=== PATIENT | female | born 1975 | race Caucasian/White ===

== ENCOUNTER 2016-03-24 04:38 | Emergency (ER) | payer OTHER ==
[~2016-03-24 04:38] MED LIST: MAALSUS8 PO; MOTR200T44 PO; NORCOTAB PO
[2016-03-24] MEDS ORDERED: ASPIRIN 81 MG CHEW TABLET As Ordered ONE (05:21)
[2016-03-24 05:25] LABS: BASO % 0.4 % (0.0-1.0); EOS # 0.2 K/mm3 (0.0-0.50); EOS % 1.5 % (0.0-3.0); LARGE UNSTAINED CELL # 0.2 K/mm3 (0.0-0.4); LYMPH # 2.6 K/mm3 (1.5-4.5); LYMPH % 26.5 % (24.0-44.0); MEAN CORPUSCULAR HEMOGLOBIN 31.6 pg (27.0-33.0); MEAN CORPUSCULAR HGB CONC 33.9 g/dl (32.0-36.5); MEAN CORPUSCULAR VOLUME 93.3 fl (80.0-96.0); MONO # 0.4 K/mm3 (0.0-0.8); MONO % 3.6 % (0.0-5.0); NEUTROPHILS # 6.5 K/mm3 (1.8-7.7); NEUTROPHILS % 66.1 % (36.0-66.0); PLATELET COUNT, AUTOMATED 218 k/mm3 (150-450); RED CELL DISTRIBUTION WIDTH 12.1 % (11.5-14.5); WHITE BLOOD COUNT 9.8 K/mm3 (4.0-10.0)
[2016-03-24 05:48] LABS: ANION GAP 8 MEQ/L (8-16); BLOOD UREA NITROGEN 17 MG/DL (7-18); CALCIUM LEVEL 8.7 MG/DL (8.5-10.1); CARBON DIOXIDE LEVEL 25 MEQ/L (21-32); CHLORIDE LEVEL 107 MEQ/L (98-107); CREATININE FOR GFR 0.87 MG/DL (0.55-1.02); GLOMERULAR FILTRATION RATE > 60.0 (>58); GLUCOSE, FASTING 90 MG/DL (70-105); POTASSIUM SERUM 3.6 MEQ/L (3.5-5.1); SODIUM LEVEL 140 MEQ/L (136-145)
--- NOTE | 2016-03-24 06:02 | REP ---
Clinical: Acute chest pain . Comparison: 04/07/2015 . Technique: PA and lateral. Findings: The mediastinum and cardiac silhouette are normal. The lung gifford are clear and without acute consolidation, effusion, or pneumothorax. The skeletal structures are intact and normal. Impression: 1. No acute cardiopulmonary process. Signed by Mike Caldwell MD 03/24/2016 05:53 A
--- NOTE | 2016-03-24 12:11 | EDDOCDS ---
Nurse's Notes [facility] Name: Tori Cummings Age: 40 yrs Sex: Female : 1975 Arrival Date: 03/24/2016 Time: 04:38 Bed 8 Private MD: Diagnosis: Other chest pain Presentation: 03/24 04:43 Presenting complaint: Patient states: chest pain radiating to left arm and left side of cf2 neck with sweat for the past hour. Sudden onset. Aspirin was not taken prior to arrival. Adult Sepsis Screening: The patient does not have new or worsening altered mentation. Patient's respiratory rate is less than 22. Systolic blood pressure is greater than 100. Patient has a qSOFA score of 0- Negative Sepsis Screen. Suicide/Homicide risk assessment- the patient denies having any suicidal and/or homicidal ideations and does not present with any other emotional, behavioral or mental health complaints. Status: Patient is not a reactor service operator or dependent. Transition of care: patient was not received from another setting of care. 04:43 Acuity: ELHAM Level 2 cf2 04:43 Method Of Arrival: Walkin/Carried/Asstd cf2 Triage Assessment: 04:45 General: Appears distressed, Behavior is appropriate for age, cooperative. Pain: cf2 Location: chest. Pt Declines HIV testing. Cardiovascular: Chest pain is described as diffuse, radiates to left arm(s) jaw(s) neck episodes are continuous last > 5 minutes began 1 hour prior to arrival. 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 none - PMHx: Eagle's Disease; hysterectomy; gastric sleeve; - Social history: Smoking status: Patient uses tobacco products, current every day smoker. Race: White, Ethnicity: Not or No barriers to communication noted. - Family history: Not pertinent. - : The pt / caregiver states he / she is not on anticoagulants. Home medication list is obtained from the patient. - Exposure Risk Screening:: None identified. Screenin:55 Screening information is obtained from the patient. Fall risk: No risks identified. tm5 Assistance ADL's: requires no assistance with activities of daily living. Abuse/DV Screen: The patient / caregiver reports he/she is: not in a situation that causes fear, pain or injury. Nutritional screening: No deficits noted. Advance Directives: There is no active DNR order. home support is adequate. Assessment: 04:58 General: Appears in no apparent distress, Behavior is appropriate for age, cooperative. tm5 General: noted to have facial grimacing with repositioning & pt noted to be holding the left side of her chest with this as well, denies SOB. Pain: Location: anterior aspect of left upper chest Pain currently is 5 out of 10 on a pain scale. Quality of pain is described as heavy, pressure, Pain began 1 hour ago. Neurological: Level of Consciousness is awake, alert, Oriented to person, place, time. Cardiovascular: Rhythm is regular. Respiratory: Airway is patent Respiratory effort is even, unlabored, Respiratory pattern is regular, symmetrical, Breath sounds are clear bilaterally. GI: No deficits noted. : No deficits noted. Derm: Skin is pink, warm & dry. normal. 06:08 Reassessment: Patient appears in no apparent distress at this time. Patient states tm5 symptoms have improved. Cardiovascular: Rhythm is regular. 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 Denies chest pain at this time. Respirations easy - slight cough noted. Saline lock intact. 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 Hob slightly elevated. Siderails up and call light on rail. Patient aware she will have repeat testing at 1000.. 07:52 Reassessment: Patient states her BP normally runs very low and has since she stopped kcs using salt.. 08:55 Reassessment: Patient sleeping - has not touched her breakfast. 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 kcs Respirations easy. Color = pink.. 09:56 Reassessment: Patient denies any chest pain at this time - has been resting. Has not kcs eaten breakfast yet. 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 Respirations easy. Color = pink. Skin = warm and dry.. 10:10 Reassessment: Patient talking on cell phone - does not want to eat at this time.. kcs 11:51 General: Appears in no apparent distress, comfortable, Behavior is appropriate for age, ms18 cooperative, Pt was informed that the ED doctor wanted her to ambulate at this time. PT states that she went to the restroom a few mins ago and just wants to go home. Dr. Hilario informed of this. Will ready pt for discharge. Neurological: Level of Consciousness is awake, alert, obeys commands, Oriented to person, place, time. Respiratory: Airway is patent Respiratory effort is even, unlabored. Derm: Skin is pink, warm & dry. 12:06 General: Appears in no apparent distress, comfortable, Behavior is appropriate for age, ms18 cooperative. Pain: Denies pain. Neurological: Level of Consciousness is awake, alert, obeys commands, Oriented to person, place, time, Moves all extremities. Speech is normal. Cardiovascular: Rhythm is regular. Respiratory: Airway is patent Respiratory effort is even, unlabored, Respiratory pattern is regular, symmetrical. Derm: Skin is pink, warm & dry. normal. Vital Signs: 04:45 BP 134 / 68; Pulse 80; Resp 18; Temp 98.0; Pulse Ox 96% on R/A; Weight 81.65 kg; Height cf2 5 ft. 7 in. (170.18 cm); Pain /; 04:53 BP 114 / 69 (auto/); tm5 04:55 Pulse 72 MON; Resp 18; Pulse Ox 98% on 2 lpm NC; Pain /10; tm5 05:08 BP 101 / 58 (auto/); tm5 05:08 Pulse 70 MON; Pulse Ox 95% ; tm5 05:23 BP 104 / 63 (auto/); tm5 05:23 Pulse 64 MON; Pulse Ox 95% ; tm5 05:38 BP 99 / 56 (auto/); tm5 05:38 Pulse 62 MON; Pulse Ox 96% ; tm5 05:53 BP 102 / 56 (auto/); tm5 05:53 Pulse 60 MON; Resp 20 S; Pulse Ox 97% on 2 lpm NC; tm5 06:08 BP 104 / 59 (auto/); tm5 06:08 Pulse 64 MON; Pulse Ox 99% ; tm5 06:23 BP 96 / 52 (auto/); tm5 06:23 Pulse 56 MON; Resp 18 S; Pulse Ox 95% on R/A; tm5 07:08 BP 83 / 46 (auto/); kcs 07:08 Pulse 58 MON; Pulse Ox 96% ; kcs 07:23 BP 84 / 48 (auto/); kcs 07:23 Pulse 56 MON; Pulse Ox 97% ; kcs 07:37 BP 149 / 68 (auto/); kcs 07:37 Pulse 90 MON; Pulse Ox 97% ; kcs 07:37 BP 90 / 53; Pulse 65; Resp 20; Pulse Ox 96% on R/A; Pain 0/10; kcs 07:38 BP 87 / 52 (auto/); kcs 07:38 Pulse 62 MON; Resp 20; Pulse Ox 98% ; kcs 07:49 BP 90 / 53 (auto/); kcs 07:49 Pulse 72 MON; Pulse Ox 97% ; kcs 08:08 BP 85 / 46 (auto/); kcs 08:08 Pulse 56 MON; Pulse Ox 97% ; kcs 08:23 BP 81 / 46 (auto/); kcs 08:23 BP 81 / 46 (auto/); kcs 08:24 Pulse 56 MON; Pulse Ox 96% ; kcs 08:24 Pulse 56 MON; Pulse Ox 96% ; kcs 08:24 BP 86 / 51; Pulse 61; Resp 16; Pulse Ox 96% on R/A; Pain 0/10; kcs 08:38 BP 91 / 53 (auto/); kcs 08:38 Pulse 62 MON; Pulse Ox 94% ; kcs 08:53 BP 93 / 53 (auto/); kcs 08:53 Pulse 60 MON; Pulse Ox 94% ; kcs 09:08 BP 86 / 51 (auto/); kcs 09:08 Pulse 64 MON; Pulse Ox 97% ; kcs 09:23 BP 79 / 44 (auto/); kcs 09:23 Pulse 58 MON; Pulse Ox 96% ; kcs 09:38 BP 101 / 52 (auto/); kcs 09:38 Pulse 58 MON; Resp 18; Pulse Ox 96% ; kcs 09:55 BP 95 / 52 (auto/); kcs 09:55 Pulse 68 MON; Pulse Ox 95% ; kcs 10:08 BP 96 / 53 (auto/); kcs 10:09 Pulse 62 MON; Resp 18; Pulse Ox 95% ; kcs 10:10 Temp 99.2(TE); kcs 10:23 BP 82 / 47 (auto/); kcs 10:24 Pulse 62 MON; Pulse Ox 98% ; kcs 10:38 BP 81 / 45 (auto/); kcs 10:39 Pulse 60 MON; Pulse Ox 97% ; kcs 10:53 BP 83 / 46 (auto/); ms18 10:53 Pulse 58 MON; Pulse Ox 97% ; ms18 11:23 BP 96 / 50 (auto/); ms18 11:23 Pulse 60 MON; Pulse Ox 96% ; ms18 11:38 BP 84 / 49 (auto/); ms18 11:38 Pulse 60 MON; Resp 18; Pulse Ox 96% ; ms18 12:00 BP 93 / 57 (auto/); ms18 12:00 Pulse 66 MON; Resp 18; Pulse Ox 97% ; Pain 0/10; ms18 04:45 Body Mass Index 28.19 (81.65 kg, 170.18 cm) cf2 Vitals: 12:04 Log In Time: March 24, 2016 at 04:40. ms18 ED Course: 04:40 Patient visited by Jacob Wong, Reg. pm4 04:40 Patient moved to Waiting pm4 04:44 Triage Initiated cf2 04:48 Patient moved to 8 tm5 04:50 Hebert Lim DO is Attending Physician. mm11 04:50 Patient visited by Hebert Lim DO. mm11 04:55 Awaiting ED physician evaluation. tm5 04:55 The patient / caregiver is instructed regarding the plan of care and ED course. Cardiac tm5 monitor on. Pulse ox on. NIBP on. 04:57 Patient visited by Onelia Bill RN. tm5 04:57 Inserted saline lock: 18 gauge in left forearm and blood collected. The patient tm5 tolerated the procedure well. Labs drawn. (by ED staff). Sent per order to lab. O2 via nasal cannula \T\ 2L/min. 05:04 Patient visited by Edgar Lou PCA. jmv 05:04 EKG done. (by ED staff). Reviewed by Hebert Lim DO. jmv 05:11 Patient visited by Onelia Bill RN. tm5 05:11 ED physician to see patient. tm5 05:18 Patient visited by Hebert Lim DO. mm11 05:19 Patient visited by Oenlia Bill RN. tm5 05:19 Basic Metabolic Profile Sent. tm5 05:19 CBC with Diff Sent. tm5 05:19 Cardiac Injury Profile Sent. tm5 05:19 D-Dimer Quant Sent. tm5 05:19 Troponin Sent. tm5 05:43 Patient visited by Onelia Bill RN. tm5 05:43 Patient moved back from radiology. tm5 05:49 [facility] Payment Agreement was scanned into [employer] and attached to record. hs2 06:08 Patient visited by Onelia Bill RN. tm5 06:14 Chest, 2 View (pa\E\lat) Returned. EDMS 06:32 Patient visited by Onelia Bill RN. tm5 06:54 Patient visited by Onelia Bill RN. tm5 07:02 Report received from Onelia Bill RN. kcs 07:06 Attending Physician role handed off by Hebert Lim DO sd1 07:06 Flor Sparks MD is Attending Physician. sd1 07:56 Patient moved to OBSERVATION sd1 09:56 CARDIAC MARKER PANEL Sent. kcs 09:57 Patient visited by Tram Garcia RN. kcs 09:57 Patient visited by Cm Villegas PCA. jrd 09:57 EKG done. (by ED staff). Reviewed by Flor Sparks MD. jrd 11:06 Report given to Leigha Toledo RN. kcs 11:17 Leigha Toledo RN is Primary Nurse. ms18 11:38 Patient has correct armband on for positive identification. Placed in gown. Bed in low ms18 position. Call light in reach. Property :Personal belongings accompany Pt. 11:38 No procedures done that require assistance. ms18 11:50 Patient visited by Leigha Toledo RN. ms18 11:50 Patient moved to 8 ms18 11:54 Isidro Montoya MD is Referral Physician. sd1 12:00 Discontinued IV lock intact, bleeding controlled, pressure dressing applied, No ms18 redness/swelling at site. 12:03 Patient visited by Leigha Toledo RN. ms18 Administered Medications: 05:26 Drug: Aspirin 324 mg [aspirin 81 mg chewable tablet (4 tabs)] Route: PO; tm5 06:00 Follow up: Response: No Adverse Reaction tm5 05:26 Drug: NS 0.9% 500 ml [sodium chloride 0.9 % intravenous solution] Route: IV; Rate: tm5 bolus; Site: left forearm; 06:33 Follow up: IV Status: Completed infusion; IV Intake: 500ml tm5 08:10 Follow up: IV Status: Completed infusion; IV Intake: 500ml kcs Intake: 06:33 IV: 500.00ml; Total: 500.00ml. tm5 08:10 IV: 500.00ml; Total: 1000.00ml. kcs Order Results: Lab Order: Basic Metabolic Profile; SPEC03/24/16 05:02 Test: GLUCOSE, FASTING; Value: 90; Range: 70-105; Units: MG/DL; Status: F Test: BLOOD UREA NITROGEN; Value: 17; Range: 7-18; Units: MG/DL; Status: F Test: CREATININE FOR GFR; Value: 0.87; Range: 0.55-1.02; Units: MG/DL; Status: F Test: GLOMERULAR FILTRATION RATE; Value: > 60.0; Range: >58; Status: F Test: SODIUM LEVEL; Value: 140; Range: 136-145; Units: MEQ/L; Status: F Test: POTASSIUM SERUM; Value: 3.6; Range: 3.5-5.1; Units: MEQ/L; Status: F Test: CHLORIDE LEVEL; Value: 107; Range: 98-107; Units: MEQ/L; Status: F Test: CARBON DIOXIDE LEVEL; Value: 25; Range: 21-32; Units: MEQ/L; Status: F Test: ANION GAP; Value: 8; Range: 8-16; Units: MEQ/L; Status: F Test: CALCIUM LEVEL; Value: 8.7; Range: 8.5-10.1; Units: MG/DL; Status: F Test Note: ; Units are mL/min/1.73 m2 Chronic Kidney Disease Staging per NKF: Stage I & II GFR >=60 Normal to Mildly Decreased Stage III GFR 30-59 Moderately Decreased Stage IV GFR 15-29 Severely Decreased Stage V GFR <15 Very Little GFR Left ESRD GFR <15 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 Lab Order: CBC with Diff; SPEC'03/24/16 05:02 Test: WHITE BLOOD COUNT; Value: 9.8; Range: 4.0-10.0; Units: K/mm3; Status: F Test: RED BLOOD COUNT; Value: 4.62; Range: 4.00-5.40; Units: M/mm3; Status: F Test: HEMOGLOBIN; Value: 14.6; Range: 12.0-16.0; Units: g/dl; Status: F Test: HEMATOCRIT; Value: 43.1; Range: 36.0-47.0; Units: %; Status: F Test: MEAN CORPUSCULAR VOLUME; Value: 93.3; Range: 80.0-96.0; Units: fl; Status: F Test: MEAN CORPUSCULAR HEMOGLOBIN; Value: 31.6; Range: 27.0-33.0; Units: pg; Status: F Test: MEAN CORPUSCULAR HGB CONC; Value: 33.9; Range: 32.0-36.5; Units: g/dl; Status: F Test: RED CELL DISTRIBUTION WIDTH; Value: 12.1; Range: 11.5-14.5; Units: %; Status: F Test: PLATELET COUNT, AUTOMATED; Value: 218; Range: 150-450; Units: k/mm3; Status: F Test: NEUTROPHILS %; Value: 66.1; Range: 36.0-66.0; Abnormal: Above high normal; Units: %; Status: F Test: LYMPH %; Value: 26.5; Range: 24.0-44.0; Units: %; Status: F Test: MONO %; Value: 3.6; Range: 0.0-5.0; Units: %; Status: F Test: EOS %; Value: 1.5; Range: 0.0-3.0; Units: %; Status: F Test: BASO %; Value: 0.4; Range: 0.0-1.0; Units: %; Status: F Test: LARGE UNSTAINED CELL %; Value: 2.0; Range: 0.0-4.0; Units: %; Status: F Test: NEUTROPHILS #; Value: 6.5; Range: 1.8-7.7; Units: K/mm3; Status: F Test: LYMPH #; Value: 2.6; Range: 1.5-4.5; Units: K/mm3; Status: F Test: MONO #; Value: 0.4; Range: 0.0-0.8; Units: K/mm3; Status: F Test: EOS #; Value: 0.2; Range: 0.0-0.50; Units: K/mm3; Status: F Test: BASO #; Value: 0.0; Range: 0.0-0.2; Units: K/mm3; Status: F Test: LARGE UNSTAINED CELL #; Value: 0.2; Range: 0.0-0.4; Units: K/mm3; Status: F Lab Order: Cardiac Injury Profile; [facility] 03/24/16 05:02 Test: CPK CREATINE PHOSPHOKINASE; Value: 61; Range: 26-192; Units: U/L; Status: F Test: CK-MB VALUE MASS; Value: 1.0; Range: 0.0-3.6; Units: NG/ML; Status: F Test: MB/CK RELATIVE INDEX; Value: 1.63; Range: < OR =4; Status: F Test Note: ; DIAGNOSIS CRITERIA MMB ng/ml Relative Index (RI) NON-AMI < or = 5 N/A [place]ONE > 5 < or = 4 AMI > 5 > 4 Lab Order: D-Dimer Quant; 03/24/16 05:02 Test: D-DIMER QUANT; Value: < 270.0; Range: <500; Units: ng/ml; Status: F Lab Order: Troponin; [facility] 03/24/16 05:02 Test: TROPONIN I; Value: < 0.02; Range: < 0.10; Units: NG/ML; Status: F Test Note: ; Troponin I Reference Interval for [employer] LOCI: 99th Percentile= 0.00-0.045 ng/ml Risk Stratification: <= 0.10 ng/ml Decreased Risk for Adverse Clinical Events. 0.10-1.50 ng/ml Increased Risk for Adverse Clinical Events. Evaluation of additional criterion and/or repeat testing in 2-6 hours is suggested to rule out myocardial damage. >= 1.50 ng/ml Indicative of Myocardial Injury. Lab Order: CARDIAC MARKER PANEL; [facility] 03/24/16 09:53 Test: CPK CREATINE PHOSPHOKINASE; Value: 48; Range: 26-192; Units: U/L; Status: F Test: CK-MB VALUE MASS; Value: 1.0; Range: 0.0-3.6; Units: NG/ML; Status: F Test: MB/CK RELATIVE INDEX; Value: 2.08; Range: < OR =4; Status: F Test: TROPONIN I; Value: < 0.02; Range: < 0.10; Units: NG/ML; Status: F Test Note: ; DIAGNOSIS CRITERIA MMB ng/ml Relative Index (RI) NON-AMI < or = 5 N/A JOH[place]ON [place]ONE > 5 < or = 4 AMI > 5 > 4 Radiology Order: Chest, 2 View (pa\E\lat) Test: Chest, 2 View (pa\E\lat) REASON FOR EXAMINATION: Chest Pain; Clinical: Acute chest pain .; ; Comparison: 04/07/2015 .; ; Technique: PA and lateral.; ; Findings:; The mediastinum and cardiac silhouette are normal. The lung gifford are clear and; without acute consolidation, effusion, or pneumothorax. The skeletal structures; are intact and normal.; ; Impression:; 1. No acute cardiopulmonary process.; ; ; Signed by; Mike Caldwell MD 03/24/2016 05:53 A; Outcome: 11:54 Discharge ordered by Provider. sd1 12:00 Discharge Assessment: Patient awake, alert and oriented x 3. No cognitive and/or ms18 functional deficits noted. Patient verbalized understanding of disposition instructions. patient administered narcotics - no. 12:09 The following High Risk Discharge criteria are identified: None. Discharged to home ms18 ambulatory. Condition: good Condition: stable Condition: improved. Discharge instructions given to patient, Instructed on discharge instructions, follow up and referral plans. medication usage, Demonstrated understanding of instructions, medications, Pt was receptive of discharge instructions/ teaching. Prescriptions given X 1. No special radiology studies were completed. Property sent home with patient. :Personal belongings accompany Pt. 12:10 Patient left the ED. ms18 Signatures: Dispatcher [employer] EDMS Flor Sparks MD MD sd1 Tram Garcia, SORAIDA RN Hebert Rizo, DO DO mm11 Leigha Toledo RN RN ms18 Cm Villegas, CHEMICAL EQUIPMENT SALES ENGINEER CHEMICAL EQUIPMENT SALES ENGINEER jrd Maryann Hernandez, Reg Reg hs2 Heather Lea,RN RN cf2 Edgar Lou, CHEMICAL EQUIPMENT SALES ENGINEER CHEMICAL EQUIPMENT SALES ENGINEER Onelia Steven RN RN tm5 Jacob Wong, Reg Reg pm4 MTDD
--- NOTE | 2016-03-24 12:11 | EDDOCDS ---
Physician Documentation [facility] Name: Tori Cummings Age: 40 yrs Sex: Female : 1975 Arrival Date: 03/24/2016 Time: 04:38 Bed 8 Private MD: Disposition: 03/24/16 11:54 Discharged to Home/Self Care. Impression: Other chest pain. - Condition is Stable. - Discharge Instructions: Angina Pectoris, Nonspecific Chest Pain, Chest Wall Pain, Costochondritis, Gastroesophageal Reflux Disease, Adult. - Prescriptions for Aspirin 81 mg - take 1 tablet by ORAL route once daily; 90 tablet. - Medication Reconciliation, Local Pharmacy Hours form. - Follow up: Isidro Montoya MD; When: Call to arrange an appointment. - Problem is new. - Symptoms have improved. Historical: - Allergies: no known allergies; - Home Meds: 1. none - PMHx: Eagle's Disease; hysterectomy; gastric sleeve; - Social history: Smoking status: Patient uses tobacco products, current every day smoker. Race: White, Ethnicity: Not or No barriers to communication noted. - Family history: Not pertinent. - : The pt / caregiver states he / she is not on anticoagulants. Home medication list is obtained from the patient. - Exposure Risk Screening:: None identified. 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 7 in. (170.18 cm); Pain 2/10; 04:53 BP 114 / 69 (auto/); tm5 04:55 Pulse 72 MON; Resp 18; Pulse Ox 98% on 2 lpm NC; Pain 5/10; tm5 05:08 BP 101 / 58 (auto/); tm5 05:08 Pulse 70 MON; Pulse Ox 95% ; tm5 05:23 BP 104 / 63 (auto/); tm5 05:23 Pulse 64 MON; Pulse Ox 95% ; tm5 05:38 BP 99 / 56 (auto/); tm5 05:38 Pulse 62 MON; Pulse Ox 96% ; tm5 05:53 BP 102 / 56 (auto/); tm5 05:53 Pulse 60 MON; Resp 20 S; Pulse Ox 97% on 2 lpm NC; tm5 06:08 BP 104 / 59 (auto/); tm5 06:08 Pulse 64 MON; Pulse Ox 99% ; tm5 06:23 BP 96 / 52 (auto/); tm5 06:23 Pulse 56 MON; Resp 18 S; Pulse Ox 95% on R/A; tm5 07:08 BP 83 / 46 (auto/); kcs 07:08 Pulse 58 MON; Pulse Ox 96% ; kcs 07:23 BP 84 / 48 (auto/); kcs 07:23 Pulse 56 MON; Pulse Ox 97% ; kcs 07:37 BP 149 / 68 (auto/); kcs 07:37 Pulse 90 MON; Pulse Ox 97% ; kcs 07:37 BP 90 / 53; Pulse 65; Resp 20; Pulse Ox 96% on R/A; Pain 0/10; kcs 07:38 BP 87 / 52 (auto/); kcs 07:38 Pulse 62 MON; Resp 20; Pulse Ox 98% ; kcs 07:49 BP 90 / 53 (auto/); kcs 07:49 Pulse 72 MON; Pulse Ox 97% ; kcs 08:08 BP 85 / 46 (auto/); kcs 08:08 Pulse 56 MON; Pulse Ox 97% ; kcs 08:23 BP 81 / 46 (auto/); kcs 08:23 BP 81 / 46 (auto/); kcs 08:24 Pulse 56 MON; Pulse Ox 96% ; kcs 08:24 Pulse 56 MON; Pulse Ox 96% ; kcs 08:24 BP 86 / 51; Pulse 61; Resp 16; Pulse Ox 96% on R/A; Pain 0/10; kcs 08:38 BP 91 / 53 (auto/); kcs 08:38 Pulse 62 MON; Pulse Ox 94% ; kcs 08:53 BP 93 / 53 (auto/); kcs 08:53 Pulse 60 MON; Pulse Ox 94% ; kcs 09:08 BP 86 / 51 (auto/); kcs 09:08 Pulse 64 MON; Pulse Ox 97% ; kcs 09:23 BP 79 / 44 (auto/); kcs 09:23 Pulse 58 MON; Pulse Ox 96% ; kcs 09:38 BP 101 / 52 (auto/); kcs 09:38 Pulse 58 MON; Resp 18; Pulse Ox 96% ; kcs 09:55 BP 95 / 52 (auto/); kcs 09:55 Pulse 68 MON; Pulse Ox 95% ; kcs 10:08 BP 96 / 53 (auto/); kcs 10:09 Pulse 62 MON; Resp 18; Pulse Ox 95% ; kcs 10:10 Temp 99.2(TE); kcs 10:23 BP 82 / 47 (auto/); kcs 10:24 Pulse 62 MON; Pulse Ox 98% ; kcs 10:38 BP 81 / 45 (auto/); kcs 10:39 Pulse 60 MON; Pulse Ox 97% ; kcs 10:53 BP 83 / 46 (auto/); ms18 10:53 Pulse 58 MON; Pulse Ox 97% ; ms18 11:23 BP 96 / 50 (auto/); ms18 11:23 Pulse 60 MON; Pulse Ox 96% ; ms18 11:38 BP 84 / 49 (auto/); ms18 11:38 Pulse 60 MON; Resp 18; Pulse Ox 96% ; ms18 12:00 BP 93 / 57 (auto/); ms18 12:00 Pulse 66 MON; Resp 18; Pulse Ox 97% ; Pain 0/10; ms18 04:45 Body Mass Index 28.19 (81.65 kg, 170.18 cm) cf2 MDM: 04:43 ECG WITH READING ER PHYS+CARDIAG ordered. EDMS 05:19 Aspirin Chewable Tablet 324 mg PO once ordered. mm11 05:19 NS 0.9% 500 ml IV at bolus once ordered. mm11 05:19 Material Coordinator/Pulse Ox/q 30 min VS ordered. mm11 05:19 IV Saline Lock ordered. mm11 05:19 Rhythm Strip to chart ordered. mm11 05:19 Undress patient appropriately for examination ordered. mm11 05:19 Basic Metabolic Profile Ordered. EDMS 05:19 CBC with Diff Ordered. EDMS 05:19 Cardiac Injury Profile Ordered. EDMS 05:19 D-Dimer Quant Ordered. EDMS 05:19 Troponin Ordered. EDMS 05:21 Chest, 2 View (pa\E\lat) Ordered. EDMS 05:48 Financial registration complete. hs2 05:49 [facility] was scanned into [employer] and attached to record. hs2 05:51 CBC with Diff Reviewed. mm11 05:51 Basic Metabolic Profile Reviewed. mm11 05:51 Cardiac Injury Profile Reviewed. mm11 05:51 D-Dimer Quant Reviewed. mm11 05:51 Troponin Reviewed. mm11 07:07 Redraw CIP &Troponin (put time in details section) ordered. mm11 07:07 Repeat EKG (put time details section) ordered. mm11 07:15 Redraw CIP &Troponin (put time in details section) complete. deg 07:15 Repeat EKG (put time details section) complete. deg 07:16 ELECTROCARDIOGRAM ADULT ordered. EDMS 07:17 CARDIAC MARKER PANEL Ordered. EDMS 07:40 REGULAR+DIET ordered. EDMS 10:37 CARDIAC MARKER PANEL Reviewed. sd1 10:37 Chest, 2 View (pa\E\lat) Reviewed. sd1 Administered Medications: 05:26 Drug: Aspirin 324 mg [aspirin 81 mg chewable tablet (4 tabs)] Route: PO; tm5 06:00 Follow up: Response: No Adverse Reaction tm5 05:26 Drug: NS 0.9% 500 ml [sodium chloride 0.9 % intravenous solution] Route: IV; Rate: tm5 bolus; Site: left forearm; 06:33 Follow up: IV Status: Completed infusion; IV Intake: 500ml tm5 08:10 Follow up: IV Status: Completed infusion; IV Intake: 500ml kcs Signatures: Dispatcher [employer] EDFlor Rothman MD MD sd1 Sandra Brenner, Founder And Ce[employer] Unit deg Hebert Lim, DO mm11 Leigha Toledo,SORAIDA RN ms18 Maryann Hernandez, Reg Reg hs2 Heather Lea RN RN cf2 Onelia Bill RN RN tm5 Tram Garcia RN kcs The chart was reviewed and I authenticate all verbal orders and agree with the evaluation and treatment provided.Corrections: (The following items were deleted from the chart) 11:51 10:38 Misc. Nursing Order ordered. sd1 ms18 Attachments: 05:49 [facility] Payment Agreement hs2 MTDD
--- NOTE | 2016-03-24 18:37 | ECGEPIP ---
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
--- NOTE | 2016-03-25 09:15 | ECGEPIP ---
Stationary ECG Study [facility] - ED Test Date: 2016-03-24 Pat Name: SADIQ DIEHL Department: Room: - Gender: F Resident Physician In Radiology: annie : 1975 Requested By: MIKE Lowery Order Number: [id number] Reading MD: Flor Sparks Measurements Intervals [place] Rate: 68 P: 13 AK: 142 QRS: 20 QRSD: 94 T: 26 QT: 397 QTc: 422 Interpretive Statements SINUS RHYTHM SIMILAR 03/24/16 9:55 Electronically Signed On 03-25-2016 9:15:16 EST by Flor Sparks
--- NOTE | 2016-03-26 13:11 | EDDOCDS ---
Physician Documentation [facility] Name: Tori Cummings Age: 40 yrs Sex: Female : 1975 Arrival Date: 03/24/2016 Time: 04:38 Bed 8 Private MD: Disposition: 03/24/16 11:54 Discharged to Home/Self Care. Impression: Other chest pain. - Condition is Stable. - Discharge Instructions: Angina Pectoris, Nonspecific Chest Pain, Chest Wall Pain, Costochondritis, Gastroesophageal Reflux Disease, Adult. - Prescriptions for Aspirin 81 mg - take 1 tablet by ORAL route once daily; 90 tablet. - Medication Reconciliation, Local Pharmacy Hours form. - Follow up: Isidro Montoya MD; When: Call to arrange an appointment. - Problem is new. - Symptoms have improved. Historical: - Allergies: no known allergies; - Home Meds: 1. none - PMHx: Eagle's Disease; hysterectomy; gastric sleeve; - Social history: Smoking status: Patient uses tobacco products, current every day smoker. Race: White, Ethnicity: Not or No barriers to communication noted. - Family history: Not pertinent. - : The pt / caregiver states he / she is not on anticoagulants. Home medication list is obtained from the patient. - Exposure Risk Screening:: None identified. 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 7 in. (170.18 cm); Pain 2/10; 04:53 BP 114 / 69 (auto/); tm5 04:55 Pulse 72 MON; Resp 18; Pulse Ox 98% on 2 lpm NC; Pain 5/10; tm5 05:08 BP 101 / 58 (auto/); tm5 05:08 Pulse 70 MON; Pulse Ox 95% ; tm5 05:23 BP 104 / 63 (auto/); tm5 05:23 Pulse 64 MON; Pulse Ox 95% ; tm5 05:38 BP 99 / 56 (auto/); tm5 05:38 Pulse 62 MON; Pulse Ox 96% ; tm5 05:53 BP 102 / 56 (auto/); tm5 05:53 Pulse 60 MON; Resp 20 S; Pulse Ox 97% on 2 lpm NC; tm5 06:08 BP 104 / 59 (auto/); tm5 06:08 Pulse 64 MON; Pulse Ox 99% ; tm5 06:23 BP 96 / 52 (auto/); tm5 06:23 Pulse 56 MON; Resp 18 S; Pulse Ox 95% on R/A; tm5 07:08 BP 83 / 46 (auto/); kcs 07:08 Pulse 58 MON; Pulse Ox 96% ; kcs 07:23 BP 84 / 48 (auto/); kcs 07:23 Pulse 56 MON; Pulse Ox 97% ; kcs 07:37 BP 149 / 68 (auto/); kcs 07:37 Pulse 90 MON; Pulse Ox 97% ; kcs 07:37 BP 90 / 53; Pulse 65; Resp 20; Pulse Ox 96% on R/A; Pain 0/10; kcs 07:38 BP 87 / 52 (auto/); kcs 07:38 Pulse 62 MON; Resp 20; Pulse Ox 98% ; kcs 07:49 BP 90 / 53 (auto/); kcs 07:49 Pulse 72 MON; Pulse Ox 97% ; kcs 08:08 BP 85 / 46 (auto/); kcs 08:08 Pulse 56 MON; Pulse Ox 97% ; kcs 08:23 BP 81 / 46 (auto/); kcs 08:23 BP 81 / 46 (auto/); kcs 08:24 Pulse 56 MON; Pulse Ox 96% ; kcs 08:24 Pulse 56 MON; Pulse Ox 96% ; kcs 08:24 BP 86 / 51; Pulse 61; Resp 16; Pulse Ox 96% on R/A; Pain 0/10; kcs 08:38 BP 91 / 53 (auto/); kcs 08:38 Pulse 62 MON; Pulse Ox 94% ; kcs 08:53 BP 93 / 53 (auto/); kcs 08:53 Pulse 60 MON; Pulse Ox 94% ; kcs 09:08 BP 86 / 51 (auto/); kcs 09:08 Pulse 64 MON; Pulse Ox 97% ; kcs 09:23 BP 79 / 44 (auto/); kcs 09:23 Pulse 58 MON; Pulse Ox 96% ; kcs 09:38 BP 101 / 52 (auto/); kcs 09:38 Pulse 58 MON; Resp 18; Pulse Ox 96% ; kcs 09:55 BP 95 / 52 (auto/); kcs 09:55 Pulse 68 MON; Pulse Ox 95% ; kcs 10:08 BP 96 / 53 (auto/); kcs 10:09 Pulse 62 MON; Resp 18; Pulse Ox 95% ; kcs 10:10 Temp 99.2(TE); kcs 10:23 BP 82 / 47 (auto/); kcs 10:24 Pulse 62 MON; Pulse Ox 98% ; kcs 10:38 BP 81 / 45 (auto/); kcs 10:39 Pulse 60 MON; Pulse Ox 97% ; kcs 10:53 BP 83 / 46 (auto/); ms18 10:53 Pulse 58 MON; Pulse Ox 97% ; ms18 11:23 BP 96 / 50 (auto/); ms18 11:23 Pulse 60 MON; Pulse Ox 96% ; ms18 11:38 BP 84 / 49 (auto/); ms18 11:38 Pulse 60 MON; Resp 18; Pulse Ox 96% ; ms18 12:00 BP 93 / 57 (auto/); ms18 12:00 Pulse 66 MON; Resp 18; Pulse Ox 97% ; Pain 0/10; ms18 04:45 Body Mass Index 28.19 (81.65 kg, 170.18 cm) cf2 MDM: 04:43 ECG WITH READING ER PHYS+CARDIAG ordered. EDMS 05:19 Aspirin Chewable Tablet 324 mg PO once ordered. mm11 05:19 NS 0.9% 500 ml IV at bolus once ordered. mm11 05:19 Fire Behavior Analyst/Pulse Ox/q 30 min VS ordered. mm11 05:19 IV Saline Lock ordered. mm11 05:19 Rhythm Strip to chart ordered. mm11 05:19 Undress patient appropriately for examination ordered. mm11 05:19 Basic Metabolic Profile Ordered. EDMS 05:19 CBC with Diff Ordered. EDMS 05:19 Cardiac Injury Profile Ordered. EDMS 05:19 D-Dimer Quant Ordered. EDMS 05:19 Troponin Ordered. EDMS 05:21 Chest, 2 View (pa\E\lat) Ordered. EDMS 05:48 Financial registration complete. hs2 05:49 [facility] Payment Agreement was scanned into [employer] and attached to record. hs2 05:51 CBC with Diff Reviewed. mm11 05:51 Basic Metabolic Profile Reviewed. mm11 05:51 Cardiac Injury Profile Reviewed. mm11 05:51 D-Dimer Quant Reviewed. mm11 05:51 Troponin Reviewed. mm11 07:07 Redraw CIP &Troponin (put time in details section) ordered. mm11 07:07 Repeat EKG (put time details section) ordered. mm11 07:15 Redraw CIP &Troponin (put time in details section) complete. deg 07:15 Repeat EKG (put time details section) complete. deg 07:16 ELECTROCARDIOGRAM ADULT ordered. EDMS 07:17 CARDIAC MARKER PANEL Ordered. EDMS 07:40 REGULAR+DIET ordered. EDMS 10:37 CARDIAC MARKER PANEL Reviewed. sd1 10:37 Chest, 2 View (pa\E\lat) Reviewed. sd1 15:00 T-Sheet-- Draft Copy was scanned into [employer] and attached to record. gb 15:00 ECG/EKG was scanned into [employer] and attached to record. gb 15:00 Trend VS was scanned into [employer] and attached to record. gb Administered Medications: 05:26 Drug: Aspirin 324 mg [aspirin 81 mg chewable tablet (4 tabs)] Route: PO; tm5 06:00 Follow up: Response: No Adverse Reaction tm5 05:26 Drug: NS 0.9% 500 ml [sodium chloride 0.9 % intravenous solution] Route: IV; Rate: tm5 bolus; Site: left forearm; 06:33 Follow up: IV Status: Completed infusion; IV Intake: 500ml tm5 08:10 Follow up: IV Status: Completed infusion; IV Intake: 500ml [facility] Signatures: Dispatcher [employer] [facility] Flor Sparks MD MD sd1 Sandra Brenner, Hemp Fiber Taker Off Unit deg Alis Boyle, Reg Reg gb Hebert Lim, DO mm11 Leigha Toledo,RN RN ms18 Maryann Hernandez, Reg Reg hs2 Heather LeaRN RN cf2 Onelia BillRN RN tm5 Tram Garcia RN The chart was reviewed and I authenticate all verbal orders and agree with the evaluation and treatment provided.Corrections: (The following items were deleted from the chart) 11:51 10:38 Misc. Nursing Order ordered. sd1 ms18 Attachments: 05:49 [facility] Payment Agreement hs2 15:00 T-Sheet-- Draft Copy gb 15:00 ECG/EKG gb Chart Complete MTDD
--- NOTE | 2016-03-26 13:11 | EDDOCDS ---
Physician Documentation [facility] Name: Tori Cummings Age: 40 yrs Sex: Female : 1975 Arrival Date: 03/24/2016 Time: 04:38 Bed 8 Private MD: Disposition: 03/24/16 11:54 Discharged to Home/Self Care. Impression: Other chest pain. - Condition is Stable. - Discharge Instructions: Angina Pectoris, Nonspecific Chest Pain, Chest Wall Pain, Costochondritis, Gastroesophageal Reflux Disease, Adult. - Prescriptions for Aspirin 81 mg - take 1 tablet by ORAL route once daily; 90 tablet. - Medication Reconciliation, Local Pharmacy Hours form. - Follow up: Isidro Montoya MD; When: Call to arrange an appointment. - Problem is new. - Symptoms have improved. Historical: - Allergies: no known allergies; - Home Meds: 1. none - PMHx: Eagle's Disease; hysterectomy; gastric sleeve; - Social history: Smoking status: Patient uses tobacco products, current every day smoker. Race: White, Ethnicity: Not or No barriers to communication noted. - Family history: Not pertinent. - : The pt / caregiver states he / she is not on anticoagulants. Home medication list is obtained from the patient. - Exposure Risk Screening:: None identified. 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 7 in. (170.18 cm); Pain 2/10; 04:53 BP 114 / 69 (auto/); tm5 04:55 Pulse 72 MON; Resp 18; Pulse Ox 98% on 2 lpm NC; Pain 5/10; tm5 05:08 BP 101 / 58 (auto/); tm5 05:08 Pulse 70 MON; Pulse Ox 95% ; tm5 05:23 BP 104 / 63 (auto/); tm5 05:23 Pulse 64 MON; Pulse Ox 95% ; tm5 05:38 BP 99 / 56 (auto/); tm5 05:38 Pulse 62 MON; Pulse Ox 96% ; tm5 05:53 BP 102 / 56 (auto/); tm5 05:53 Pulse 60 MON; Resp 20 S; Pulse Ox 97% on 2 lpm NC; tm5 06:08 BP 104 / 59 (auto/); tm5 06:08 Pulse 64 MON; Pulse Ox 99% ; tm5 06:23 BP 96 / 52 (auto/); tm5 06:23 Pulse 56 MON; Resp 18 S; Pulse Ox 95% on R/A; tm5 07:08 BP 83 / 46 (auto/); kcs 07:08 Pulse 58 MON; Pulse Ox 96% ; kcs 07:23 BP 84 / 48 (auto/); kcs 07:23 Pulse 56 MON; Pulse Ox 97% ; kcs 07:37 BP 149 / 68 (auto/); kcs 07:37 Pulse 90 MON; Pulse Ox 97% ; kcs 07:37 BP 90 / 53; Pulse 65; Resp 20; Pulse Ox 96% on R/A; Pain 0/10; kcs 07:38 BP 87 / 52 (auto/); kcs 07:38 Pulse 62 MON; Resp 20; Pulse Ox 98% ; kcs 07:49 BP 90 / 53 (auto/); kcs 07:49 Pulse 72 MON; Pulse Ox 97% ; kcs 08:08 BP 85 / 46 (auto/); kcs 08:08 Pulse 56 MON; Pulse Ox 97% ; kcs 08:23 BP 81 / 46 (auto/); kcs 08:23 BP 81 / 46 (auto/); kcs 08:24 Pulse 56 MON; Pulse Ox 96% ; kcs 08:24 Pulse 56 MON; Pulse Ox 96% ; kcs 08:24 BP 86 / 51; Pulse 61; Resp 16; Pulse Ox 96% on R/A; Pain 0/10; kcs 08:38 BP 91 / 53 (auto/); kcs 08:38 Pulse 62 MON; Pulse Ox 94% ; kcs 08:53 BP 93 / 53 (auto/); kcs 08:53 Pulse 60 MON; Pulse Ox 94% ; kcs 09:08 BP 86 / 51 (auto/); kcs 09:08 Pulse 64 MON; Pulse Ox 97% ; kcs 09:23 BP 79 / 44 (auto/); kcs 09:23 Pulse 58 MON; Pulse Ox 96% ; kcs 09:38 BP 101 / 52 (auto/); kcs 09:38 Pulse 58 MON; Resp 18; Pulse Ox 96% ; kcs 09:55 BP 95 / 52 (auto/); kcs 09:55 Pulse 68 MON; Pulse Ox 95% ; kcs 10:08 BP 96 / 53 (auto/); kcs 10:09 Pulse 62 MON; Resp 18; Pulse Ox 95% ; kcs 10:10 Temp 99.2(TE); kcs 10:23 BP 82 / 47 (auto/); kcs 10:24 Pulse 62 MON; Pulse Ox 98% ; kcs 10:38 BP 81 / 45 (auto/); kcs 10:39 Pulse 60 MON; Pulse Ox 97% ; kcs 10:53 BP 83 / 46 (auto/); ms18 10:53 Pulse 58 MON; Pulse Ox 97% ; ms18 11:23 BP 96 / 50 (auto/); ms18 11:23 Pulse 60 MON; Pulse Ox 96% ; ms18 11:38 BP 84 / 49 (auto/); ms18 11:38 Pulse 60 MON; Resp 18; Pulse Ox 96% ; ms18 12:00 BP 93 / 57 (auto/); ms18 12:00 Pulse 66 MON; Resp 18; Pulse Ox 97% ; Pain 0/10; ms18 04:45 Body Mass Index 28.19 (81.65 kg, 170.18 cm) cf2 MDM: 04:43 ECG WITH READING ER PHYS+CARDIAG ordered. EDMS 05:19 Aspirin Chewable Tablet 324 mg PO once ordered. mm11 05:19 NS 0.9% 500 ml IV at bolus once ordered. mm11 05:19 Retirement Plan Counselor/Pulse Ox/q 30 min VS ordered. mm11 05:19 IV Saline Lock ordered. mm11 05:19 Rhythm Strip to chart ordered. mm11 05:19 Undress patient appropriately for examination ordered. mm11 05:19 Basic Metabolic Profile Ordered. EDMS 05:19 CBC with Diff Ordered. EDMS 05:19 Cardiac Injury Profile Ordered. EDMS 05:19 D-Dimer Quant Ordered. EDMS 05:19 Troponin Ordered. EDMS 05:21 Chest, 2 View (pa\E\lat) Ordered. EDMS 05:48 Financial registration complete. hs2 05:49 [facility] [place] [facility] Payment Agreement was scanned into [employer] and attached to record. hs2 05:51 CBC with Diff Reviewed. mm11 05:51 Basic Metabolic Profile Reviewed. mm11 05:51 Cardiac Injury Profile Reviewed. mm11 05:51 D-Dimer Quant Reviewed. mm11 05:51 Troponin Reviewed. mm11 07:07 Redraw CIP &Troponin (put time in details section) ordered. mm11 07:07 Repeat EKG (put time details section) ordered. mm11 07:15 Redraw CIP &Troponin (put time in details section) complete. deg 07:15 Repeat EKG (put time details section) complete. deg 07:16 ELECTROCARDIOGRAM ADULT ordered. EDMS 07:17 CARDIAC MARKER PANEL Ordered. EDMS 07:40 REGULAR+DIET ordered. EDMS 10:37 CARDIAC MARKER PANEL Reviewed. sd1 10:37 Chest, 2 View (pa\E\lat) Reviewed. sd1 15:00 T-Sheet-- Draft Copy was scanned into [employer] and attached to record. gb 15:00 ECG/EKG was scanned into [employer] and attached to record. gb 15:00 Trend VS was scanned into [employer] and attached to record. gb Administered Medications: 05:26 Drug: Aspirin 324 mg [aspirin 81 mg chewable tablet (4 tabs)] Route: PO; tm5 06:00 Follow up: Response: No Adverse Reaction tm5 05:26 Drug: NS 0.9% 500 ml [sodium chloride 0.9 % intravenous solution] Route: IV; Rate: tm5 bolus; Site: left forearm; 06:33 Follow up: IV Status: Completed infusion; IV Intake: 500ml tm5 08:10 Follow up: IV Status: Completed infusion; IV Intake: 500ml [facility] Signatures: Dispatcher [employer] [facility] Flor Sparks MD MD sd1 Sandra Brenner, Tractor Trailer Mechanic Unit deg Alis Boyle, Reg Reg gb Hebert Lim, DO mm11 Leigha Toledo,RN RN ms18 Maryann Hernandez, Reg Reg hs2 Heahter LeaRN RN cf2 Onelia BillRN RN tm5 Tram Garcia RN The chart was reviewed and I authenticate all verbal orders and agree with the evaluation and treatment provided.Corrections: (The following items were deleted from the chart) 11:51 10:38 Misc. Nursing Order ordered. sd1 ms18 Attachments: 05:49 [facility] [place] Payment Agreement hs2 15:00 T-Sheet-- Draft Copy gb 15:00 ECG/EKG gb Chart Complete MTDD
--- NOTE | 2016-03-26 13:11 | EDDOCDS ---
Nurse's Notes [facility] Name: Sadiq Cummings Age: 40 yrs Sex: Female : 1975 Arrival Date: 03/24/2016 Time: 04:38 Bed 8 Private MD: Diagnosis: Other chest pain Presentation: 03/24 04:43 Presenting complaint: Patient states: chest pain radiating to left arm and left side of cf2 neck with sweat for the past hour. Sudden onset. Aspirin was not taken prior to arrival. Adult Sepsis Screening: The patient does not have new or worsening altered mentation. Patient's respiratory rate is less than 22. Systolic blood pressure is greater than 100. Patient has a qSOFA score of 0- Negative Sepsis Screen. Suicide/Homicide risk assessment- the patient denies having any suicidal and/or homicidal ideations and does not present with any other emotional, behavioral or mental health complaints. Status: Patient is not a track service person or dependent. Transition of care: patient was not received from another setting of care. 04:43 Acuity: ELHAM Level 2 cf2 04:43 Method Of Arrival: Walkin/Carried/Asstd cf2 Triage Assessment: 04:45 General: Appears distressed, Behavior is appropriate for age, cooperative. Pain: cf2 Location: chest. Pt Declines HIV testing. Cardiovascular: Chest pain is described as diffuse, radiates to left arm(s) jaw(s) neck episodes are continuous last > 5 minutes began 1 hour prior to arrival. MANAGER CAR: 04:45 LMP N/A - Hysterectomy cf2 Historical: - Allergies: no known allergies; - Home Meds: 1. none - PMHx: Eagle's Disease; hysterectomy; gastric sleeve; - Social history: Smoking status: Patient uses tobacco products, current every day smoker. Race: White, Ethnicity: Not or No barriers to communication noted. - Family history: Not pertinent. - : The pt / caregiver states he / she is not on anticoagulants. Home medication list is obtained from the patient. - Exposure Risk Screening:: None identified. Screenin:55 Screening information is obtained from the patient. Fall risk: No risks identified. tm5 Assistance ADL's: requires no assistance with activities of daily living. Abuse/DV Screen: The patient / caregiver reports he/she is: not in a situation that causes fear, pain or injury. Nutritional screening: No deficits noted. Advance Directives: There is no active DNR order. home support is adequate. Assessment: 04:58 General: Appears in no apparent distress, Behavior is appropriate for age, cooperative. tm5 General: noted to have facial grimacing with repositioning & pt noted to be holding the left side of her chest with this as well, denies SOB. Pain: Location: anterior aspect of left upper chest Pain currently is 5 out of 10 on a pain scale. Quality of pain is described as heavy, pressure, Pain began 1 hour ago. Neurological: Level of Consciousness is awake, alert, Oriented to person, place, time. Cardiovascular: Rhythm is regular. Respiratory: Airway is patent Respiratory effort is even, unlabored, Respiratory pattern is regular, symmetrical, Breath sounds are clear bilaterally. GI: No deficits noted. : No deficits noted. Derm: Skin is pink, warm & dry. normal. 06:08 Reassessment: Patient appears in no apparent distress at this time. Patient states tm5 symptoms have improved. Cardiovascular: Rhythm is regular. 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 Denies chest pain at this time. Respirations easy - slight cough noted. Saline lock intact. cardiac monitor = Sinus cam. Hob slightly elevated. Siderails up and call light on rail. Patient aware she will have repeat testing at 1000.. 07:52 Reassessment: Patient states her BP normally runs very low and has since she stopped kcs using salt.. 08:55 Reassessment: Patient sleeping - has not touched her breakfast. cardiac monitor = RSR. kcs Respirations easy. Color = pink.. 09:56 Reassessment: Patient denies any chest pain at this time - has been resting. Has not kcs eaten breakfast yet. cardiac monitor = RSR. Respirations easy. Color = pink. Skin = warm and dry.. 10:10 Reassessment: Patient talking on cell phone - does not want to eat at this time.. kcs 11:51 General: Appears in no apparent distress, comfortable, Behavior is appropriate for age, ms18 cooperative, Pt was informed that the ED doctor wanted her to ambulate at this time. PT states that she went to the restroom a few mins ago and just wants to go home. Dr. Hilario informed of this. Will ready pt for discharge. Neurological: Level of Consciousness is awake, alert, obeys commands, Oriented to person, place, time. Respiratory: Airway is patent Respiratory effort is even, unlabored. Derm: Skin is pink, warm & dry. 12:06 General: Appears in no apparent distress, comfortable, Behavior is appropriate for age, ms18 cooperative. Pain: Denies pain. Neurological: Level of Consciousness is awake, alert, obeys commands, Oriented to person, place, time, Moves all extremities. Speech is normal. Cardiovascular: Rhythm is regular. Respiratory: Airway is patent Respiratory effort is even, unlabored, Respiratory pattern is regular, symmetrical. Derm: Skin is pink, warm & dry. normal. Vital Signs: 04:45 BP 134 / 68; Pulse 80; Resp 18; Temp 98.0; Pulse Ox 96% on R/A; Weight 81.65 kg; Height cf2 5 ft. 7 in. (170.18 cm); Pain /; 04:53 BP 114 / 69 (auto/); tm5 04:55 Pulse 72 MON; Resp 18; Pulse Ox 98% on 2 lpm NC; Pain /10; tm5 05:08 BP 101 / 58 (auto/); tm5 05:08 Pulse 70 MON; Pulse Ox 95% ; tm5 05:23 BP 104 / 63 (auto/); tm5 05:23 Pulse 64 MON; Pulse Ox 95% ; tm5 05:38 BP 99 / 56 (auto/); tm5 05:38 Pulse 62 MON; Pulse Ox 96% ; tm5 05:53 BP 102 / 56 (auto/); tm5 05:53 Pulse 60 MON; Resp 20 S; Pulse Ox 97% on 2 lpm NC; tm5 06:08 BP 104 / 59 (auto/); tm5 06:08 Pulse 64 MON; Pulse Ox 99% ; tm5 06:23 BP 96 / 52 (auto/); tm5 06:23 Pulse 56 MON; Resp 18 S; Pulse Ox 95% on R/A; tm5 07:08 BP 83 / 46 (auto/); kcs 07:08 Pulse 58 MON; Pulse Ox 96% ; kcs 07:23 BP 84 / 48 (auto/); kcs 07:23 Pulse 56 MON; Pulse Ox 97% ; kcs 07:37 BP 149 / 68 (auto/); kcs 07:37 Pulse 90 MON; Pulse Ox 97% ; kcs 07:37 BP 90 / 53; Pulse 65; Resp 20; Pulse Ox 96% on R/A; Pain 0/10; kcs 07:38 BP 87 / 52 (auto/); kcs 07:38 Pulse 62 MON; Resp 20; Pulse Ox 98% ; kcs 07:49 BP 90 / 53 (auto/); kcs 07:49 Pulse 72 MON; Pulse Ox 97% ; kcs 08:08 BP 85 / 46 (auto/); kcs 08:08 Pulse 56 MON; Pulse Ox 97% ; kcs 08:23 BP 81 / 46 (auto/); kcs 08:23 BP 81 / 46 (auto/); kcs 08:24 Pulse 56 MON; Pulse Ox 96% ; kcs 08:24 Pulse 56 MON; Pulse Ox 96% ; kcs 08:24 BP 86 / 51; Pulse 61; Resp 16; Pulse Ox 96% on R/A; Pain 0/10; kcs 08:38 BP 91 / 53 (auto/); kcs 08:38 Pulse 62 MON; Pulse Ox 94% ; kcs 08:53 BP 93 / 53 (auto/); kcs 08:53 Pulse 60 MON; Pulse Ox 94% ; kcs 09:08 BP 86 / 51 (auto/); kcs 09:08 Pulse 64 MON; Pulse Ox 97% ; kcs 09:23 BP 79 / 44 (auto/); kcs 09:23 Pulse 58 MON; Pulse Ox 96% ; kcs 09:38 BP 101 / 52 (auto/); kcs 09:38 Pulse 58 MON; Resp 18; Pulse Ox 96% ; kcs 09:55 BP 95 / 52 (auto/); kcs 09:55 Pulse 68 MON; Pulse Ox 95% ; kcs 10:08 BP 96 / 53 (auto/); kcs 10:09 Pulse 62 MON; Resp 18; Pulse Ox 95% ; kcs 10:10 Temp 99.2(TE); kcs 10:23 BP 82 / 47 (auto/); kcs 10:24 Pulse 62 MON; Pulse Ox 98% ; kcs 10:38 BP 81 / 45 (auto/); kcs 10:39 Pulse 60 MON; Pulse Ox 97% ; kcs 10:53 BP 83 / 46 (auto/); ms18 10:53 Pulse 58 MON; Pulse Ox 97% ; ms18 11:23 BP 96 / 50 (auto/); ms18 11:23 Pulse 60 MON; Pulse Ox 96% ; ms18 11:38 BP 84 / 49 (auto/); ms18 11:38 Pulse 60 MON; Resp 18; Pulse Ox 96% ; ms18 12:00 BP 93 / 57 (auto/); ms18 12:00 Pulse 66 MON; Resp 18; Pulse Ox 97% ; Pain 0/10; ms18 04:45 Body Mass Index 28.19 (81.65 kg, 170.18 cm) cf2 Vitals: 12:04 Log In Time: March 24, 2016 at 04:40. ms18 ED Course: 04:40 Patient visited by Jacob Wong, Reg. pm4 04:40 Patient moved to Waiting pm4 04:44 Triage Initiated cf2 04:48 Patient moved to 8 tm5 04:50 Mike Lim DO is Attending Physician. mm11 04:50 Patient visited by Mike Lim DO. mm11 04:55 Awaiting ED physician evaluation. tm5 04:55 The patient / caregiver is instructed regarding the plan of care and ED course. Cardiac tm5 monitor on. Pulse ox on. NIBP on. 04:57 Patient visited by Onelia Bill RN. tm5 04:57 Inserted saline lock: 18 gauge in left forearm and blood collected. The patient tm5 tolerated the procedure well. Labs drawn. (by ED staff). Sent per order to lab. O2 via nasal cannula \T\ 2L/min. 05:04 Patient visited by Edgar Lou PCA. jmv 05:04 EKG done. (by ED staff). Reviewed by Mike Lim DO. jmv 05:11 Patient visited by Onelia Bill RN. tm5 05:11 ED physician to see patient. tm5 05:18 Patient visited by Mike Lim DO. mm11 05:19 Patient visited by Onelia Bill RN. tm5 05:19 Basic Metabolic Profile Sent. tm5 05:19 CBC with Diff Sent. tm5 05:19 Cardiac Injury Profile Sent. tm5 05:19 D-Dimer Quant Sent. tm5 05:19 Troponin Sent. tm5 05:43 Patient visited by Onelia Bill RN. tm5 05:43 Patient moved back from radiology. tm5 05:49 [facility] Payment Agreement was scanned into [employer] and attached to record. hs2 06:08 Patient visited by Onelia Bill,SORAIDA. tm5 06:14 Chest, 2 View (pa\E\lat) Returned. EDMS 06:32 Patient visited by Onelia Bill RN. tm5 06:54 Patient visited by Onelia Bill RN. tm5 07:02 Report received from Onelia Bill RN. kcs 07:06 Attending Physician role handed off by Mike Lim DO sd1 07:06 Flor Sparks MD is Attending Physician. sd1 07:56 Patient moved to OBSERVATION sd1 09:56 CARDIAC MARKER PANEL Sent. kcs 09:57 Patient visited by Tram Garcia RN. kcs 09:57 Patient visited by Cm Villegas PCA. jrd 09:57 EKG done. (by ED staff). Reviewed by Flor Sparks MD. jrd 11:06 Report given to Leigha Toledo RN. kcs 11:17 Leigha Toledo RN is Primary Nurse. ms18 11:38 Patient has correct armband on for positive identification. Placed in gown. Bed in low ms18 position. Call light in reach. Property :Personal belongings accompany Pt. 11:38 No procedures done that require assistance. ms18 11:50 Patient visited by Leigha Toledo RN. ms18 11:50 Patient moved to 8 ms18 11:54 Isidro Montoya MD is Referral Physician. sd1 12:00 Discontinued IV lock intact, bleeding controlled, pressure dressing applied, No ms18 redness/swelling at site. 12:03 Patient visited by Leigha Toledo RN. ms18 15:00 T-Sheet-- Draft Copy was scanned into [employer] and attached to record. gb 15:00 ECG/EKG was scanned into [employer] and attached to record. gb 15:00 Trend VS was scanned into [employer] and attached to record. gb 19:13 ELECTROCARDIOGRAM ADULT Returned. EDMS 02/03 09:17 EKG-ADULT Returned. EDMS Administered Medications: 03/24 05:26 Drug: Aspirin 324 mg [aspirin 81 mg chewable tablet (4 tabs)] Route: PO; tm5 06:00 Follow up: Response: No Adverse Reaction tm5 05:26 Drug: NS 0.9% 500 ml [sodium chloride 0.9 % intravenous solution] Route: IV; Rate: tm5 bolus; Site: left forearm; 06:33 Follow up: IV Status: Completed infusion; IV Intake: 500ml tm5 08:10 Follow up: IV Status: Completed infusion; IV Intake: 500ml kcs Attachments: 15:00 Trend VS gb Intake: 06:33 IV: 500.00ml; Total: 500.00ml. tm5 08:10 IV: 500.00ml; Total: 1000.00ml. kcs Order Results: Lab Order: Basic Metabolic Profile; SPEC'M 03/24/16 05:02 Test: GLUCOSE, FASTING; Value: 90; Range: 70-105; Units: MG/DL; Status: F Test: BLOOD UREA NITROGEN; Value: 17; Range: 7-18; Units: MG/DL; Status: F Test: CREATININE FOR GFR; Value: 0.87; Range: 0.55-1.02; Units: MG/DL; Status: F Test: GLOMERULAR FILTRATION RATE; Value: > 60.0; Range: >58; Status: F Test: SODIUM LEVEL; Value: 140; Range: 136-145; Units: MEQ/L; Status: F Test: POTASSIUM SERUM; Value: 3.6; Range: 3.5-5.1; Units: MEQ/L; Status: F Test: CHLORIDE LEVEL; Value: 107; Range: 98-107; Units: MEQ/L; Status: F Test: CARBON DIOXIDE LEVEL; Value: 25; Range: 21-32; Units: MEQ/L; Status: F Test: ANION GAP; Value: 8; Range: 8-16; Units: MEQ/L; Status: F Test: CALCIUM LEVEL; Value: 8.7; Range: 8.5-10.1; Units: MG/DL; Status: F Test Note: ; Units are mL/min/1.73 m2 Chronic Kidney Disease Staging per NKF: Stage I & II GFR >=60 Normal to Mildly Decreased Stage III GFR 30-59 Moderately Decreased Stage IV GFR 15-29 Severely Decreased Stage V GFR <15 Very Little GFR Left ESRD GFR <15 on JAW SKINNER Lab Order: CBC with Diff; SPEC'M 03/24/16 05:02 Test: WHITE BLOOD COUNT; Value: 9.8; Range: 4.0-10.0; Units: K/mm3; Status: F Test: RED BLOOD COUNT; Value: 4.62; Range: 4.00-5.40; Units: M/mm3; Status: F Test: HEMOGLOBIN; Value: 14.6; Range: 12.0-16.0; Units: g/dl; Status: F Test: HEMATOCRIT; Value: 43.1; Range: 36.0-47.0; Units: %; Status: F Test: MEAN CORPUSCULAR VOLUME; Value: 93.3; Range: 80.0-96.0; Units: fl; Status: F Test: MEAN CORPUSCULAR HEMOGLOBIN; Value: 31.6; Range: 27.0-33.0; Units: pg; Status: F Test: MEAN CORPUSCULAR HGB CONC; Value: 33.9; Range: 32.0-36.5; Units: g/dl; Status: F Test: RED CELL DISTRIBUTION WIDTH; Value: 12.1; Range: 11.5-14.5; Units: %; Status: F Test: PLATELET COUNT, AUTOMATED; Value: 218; Range: 150-450; Units: k/mm3; Status: F Test: NEUTROPHILS %; Value: 66.1; Range: 36.0-66.0; Abnormal: Above high normal; Units: %; Status: F Test: LYMPH %; Value: 26.5; Range: 24.0-44.0; Units: %; Status: F Test: MONO %; Value: 3.6; Range: 0.0-5.0; Units: %; Status: F Test: EOS %; Value: 1.5; Range: 0.0-3.0; Units: %; Status: F Test: BASO %; Value: 0.4; Range: 0.0-1.0; Units: %; Status: F Test: LARGE UNSTAINED CELL %; Value: 2.0; Range: 0.0-4.0; Units: %; Status: F Test: NEUTROPHILS #; Value: 6.5; Range: 1.8-7.7; Units: K/mm3; Status: F Test: LYMPH #; Value: 2.6; Range: 1.5-4.5; Units: K/mm3; Status: F Test: MONO #; Value: 0.4; Range: 0.0-0.8; Units: K/mm3; Status: F Test: EOS #; Value: 0.2; Range: 0.0-0.50; Units: K/mm3; Status: F Test: BASO #; Value: 0.0; Range: 0.0-0.2; Units: K/mm3; Status: F Test: LARGE UNSTAINED CELL #; Value: 0.2; Range: 0.0-0.4; Units: K/mm3; Status: F Lab Order: Cardiac Injury Profile; [facility] 03/24/16 05:02 Test: CPK CREATINE PHOSPHOKINASE; Value: 61; Range: 26-192; Units: U/L; Status: F Test: CK-MB VALUE MASS; Value: 1.0; Range: 0.0-3.6; Units: NG/ML; Status: F Test: MB/CK RELATIVE INDEX; Value: 1.63; Range: < OR =4; Status: F Test Note: ; DIAGNOSIS CRITERIA MMB ng/ml Relative Index (RI) NON-AMI < or = 5 N/A JOH[place]ON [place]ONE > 5 < or = 4 AMI > 5 > 4 Lab Order: D-Dimer Quant; [facility] 03/24/16 05:02 Test: D-DIMER QUANT; Value: < 270.0; Range: <500; Units: ng/ml; Status: F Lab Order: Troponin; [facility] 03/24/16 05:02 Test: TROPONIN I; Value: < 0.02; Range: < 0.10; Units: NG/ML; Status: F Test Note: ; Troponin I Reference Interval for [employer] LOCI: 99th Percentile= 0.00-0.045 ng/ml Risk Stratification: <= 0.10 ng/ml Decreased Risk for Adverse Clinical Events. 0.10-1.50 ng/ml Increased Risk for Adverse Clinical Events. Evaluation of additional criterion and/or repeat testing in 2-6 hours is suggested to rule out myocardial damage. >= 1.50 ng/ml Indicative of Myocardial Injury. Lab Order: CARDIAC MARKER PANEL; [facility] 03/24/16 09:53 Test: CPK CREATINE PHOSPHOKINASE; Value: 48; Range: 26-192; Units: U/L; Status: F Test: CK-MB VALUE MASS; Value: 1.0; Range: 0.0-3.6; Units: NG/ML; Status: F Test: MB/CK RELATIVE INDEX; Value: 2.08; Range: < OR =4; Status: F Test: TROPONIN I; Value: < 0.02; Range: < 0.10; Units: NG/ML; Status: F Test Note: ; DIAGNOSIS CRITERIA MMB ng/ml Relative Index (RI) NON-AMI < or = 5 N/A JOH[place]ON ZONE > 5 < or = 4 AMI > 5 > 4 Radiology Order: EKG-ADULT Test: EKG-ADULT REASON FOR EXAMINATION: Chest Pain; Stationary ECG Study; [facility] - ED; ; Test Date: 2016-03-24; Pat Name: SADIQ BOBOALOBOS Department:; Room: -; 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 The lung gifford are clear and; without acute consolidation, effusion, or pneumothorax. The skeletal structures; are intact and normal.; ; Impression:; 1. 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 sd1 12:00 Discharge Assessment: Patient awake, alert and oriented x 3. No cognitive and/or ms18 functional deficits noted. Patient verbalized understanding of disposition instructions. patient administered narcotics - no. 12:09 The following High Risk Discharge criteria are identified: None. Discharged to home ms18 ambulatory. Condition: good Condition: stable Condition: improved. Discharge instructions given to patient, Instructed on discharge instructions, follow up and referral plans. medication usage, Demonstrated understanding of instructions, medications, Pt was receptive of discharge instructions/ teaching. Prescriptions given X 1. No special radiology studies were completed. Property sent home with patient. :Personal belongings accompany Pt. 12:10 Patient left the ED. ms18 Signatures: Dispatcher [employer] EDMS Flor Sparks MD MD sd1 Tram Garcia, SORAIDA RN [facility] Alis Boyle, Reg Reg gb Mike Lim, DO DO mm11 Leigha Toledo RN RN ms18 Cm Villegas, [employer] jrd Maryann Hernandez, Reg Reg hs2 Heather Lea,RN RN cf2 Edgar Lou, [employer]CRE[employer] Onelia Steven,RN RN elías5 Jacob Wong, Reg Reg pm4 Chart Complete MTDD
== END 2016-03-24 12:10 | disposition home or self-care (01) ==
LOC: M ED 04:38
DX: R07.9 Chest pain, unspecified (principal); R06.02 Shortness of breath; E06.3 Autoimmune thyroiditis; Z90.3 Acquired absence of stomach [part of]

== ENCOUNTER → 2016-04-18 | Outpatient (REF) | payer OTHER | LOC: M LAB REF 16:21 | PROVIDERS: ATTEND Nurse Practitioner Women's Health | DX: R39.89 Other symptoms and signs involving the genitourinary system (principal); Z11.3 Encounter for screening for infections with a predominantly sexual mode of transmission ==

== ENCOUNTER → 2016-04-27 | Outpatient (CLI) | payer OTHER ==
[2016-04-27 10:27] LABS: MEAN CORPUSCULAR HGB CONC 34.2 g/dl (32.0-36.5); MEAN CORPUSCULAR VOLUME 93.4 fl (80.0-96.0); RED CELL DISTRIBUTION WIDTH 12.3 % (11.5-14.5); WHITE BLOOD COUNT 6.3 K/mm3 (4.0-10.0)
--- NOTE | 2016-04-27 10:54 | REP ---
Chest x-ray: Two views. History: Abdominal mass, question abdominal aortic aneurysm. Comparison study: March 24, 2016. Findings: The lungs are well inflated and clear. Pleural angles are sharp. Heart size is normal. No significant bony abnormality is seen. Impression: No active disease. Signed by Ciaran Wright MD 04/27/2016 12:26 P
--- NOTE | 2016-04-27 10:56 | REP ---
Bilateral hip series: Five views. History: Lupus. Findings: AP and frog-leg views of both hips demonstrate preserved hip joint spaces and smooth rounded femoral heads bilaterally. No erosive changes seen. No bony destructive lesion is seen. There is some tendon insertion site spurring at the iliac crest bilaterally consistent with some degree of enthesopathy. Impression: No acute abnormality. Joint spaces are preserved. Signed by Ciaran Wright MD 04/27/2016 12:26 P
--- NOTE | 2016-04-27 10:56 | REP ---
Lumbar spine series: Five views. History: Lupus. Findings: There are sutures in the left upper abdomen. Psoas margins are symmetric. Bowel gas pattern is otherwise normal. Lumbar vertebral body heights are preserved. Alignment is normal. There is mild disc space narrowing at L4-5. Discogenic spurring is seen at L1-2. Pedicles and posterior elements are intact. There is no evidence of spondylolysis or spondylolisthesis. Impression: Mild degenerative disc changes L4-5 and L1-2. No acute abnormality. Signed by Ciaran Wright MD 04/27/2016 12:26 P
[2016-04-27 11:02] LABS: ALBUMIN 3.5 GM/DL (3.2-5.2); ALBUMIN/GLOBULIN RATIO 1.13 (1.00-1.93); ALKALINE PHOSPHATASE 64 U/L (45-117); ALT/SGPT 13 U/L (12-78); ANION GAP 9 MEQ/L (8-16); AST/SGOT 11 U/L (15-37); BILIRUBIN,TOTAL 0.4 MG/DL (0.2-1.0); BLOOD UREA NITROGEN 14 MG/DL (7-18); CALCIUM LEVEL 8.3 MG/DL (8.5-10.1); CARBON DIOXIDE LEVEL 26 MEQ/L (21-32); CHLORIDE LEVEL 109 MEQ/L (98-107); CHOLESTEROL LEVEL 221 MG/DL (<200); CREATININE FOR GFR 0.75 MG/DL (0.55-1.02); GLOMERULAR FILTRATION RATE > 60.0 (>58); GLUCOSE, FASTING 85 MG/DL (70-105); PERCENT SATURATION 64.5 % (13.2-37.4); POTASSIUM SERUM 3.9 MEQ/L (3.5-5.1); SODIUM LEVEL 144 MEQ/L (136-145); THYROXINE (T4) 9.1 UG/DL (4.5-12.0); TOTAL IRON BINDING CAPACITY 251 UG/DL (250-450); TOTAL PROTEIN 6.6 GM/DL (6.4-8.2); TRIGLYCERIDES LEVEL 121 MG/DL (<150)
[2016-04-27 11:16] LABS: CORTISOL AM 14.4 UG/DL (4.3-22.4)
[2016-04-27 11:17] LABS: VITAMIN B12 LEVEL 303 PG/ML (247-911)
--- NOTE | 2016-04-27 13:11 | REP ---
CT study of the abdomen and pelvis without and with IV contrast: With oral contrast. History: Abdominal mass, question abdominal aortic aneurysm. Comparison CT study is from April 07, 2015. CT contrast dose: 100 ml of Isovue [address] findings: Preliminary digital channel man radiograph demonstrates an unremarkable bowel gas pattern. The lung bases are clear. The liver and the spleen are normal in size, homogeneous in texture on pre- and postcontrast imaging. No adrenal mass lesion is observed. The adrenal glands are slightly thickened as before. There is an anastomotic suture line along the wall of the stomach consistent with previous gastric surgery. Small and large intestinal bowel loops are normal in the abdomen and pelvis. No abdominal mass is seen. The abdominal aorta is normal in caliber. No aneurysm is seen. No retroperitoneal mass or adenopathy is observed. No abdominal wall defect is seen. The kidneys enhance symmetrically are morphologically intact. There is left colonic diverticulosis without CT evidence of diverticulitis. The patient is status post hysterectomy. Urinary bladder is unremarkable. No bony destructive lesion is appreciated. Impression: No abdominal mass lesion is seen. Normal caliber aorta. Left colonic diverticulosis without CT evidence of diverticulitis. Previous gastric surgery. Signed by Ciaran Wright MD 04/27/2016 05:45 P
--- NOTE | 2016-04-27 17:01 | ECGEPIP ---
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
[2016-04-29 00:09] LABS: Lyme Disease IgG/IgM Antibodie <0.91 ISR (0.00-0.90); Lyme Disease IgM Ab Quantitati <0.80 index (0.00-0.79)
== END ==
LOC: M LAB 09:32
PROVIDERS: ATTEND Family Medicine
DX: I71.4 Abdominal aortic aneurysm, without rupture (principal)

== ENCOUNTER → 2016-05-25 | Outpatient (CLI) | payer OTHER ==
--- NOTE | 2016-05-25 10:46 | REP ---
CERVICAL SPINE SERIES: Full cervical spine series is performed with eight total views obtained. There is no fracture or dislocation. The vertebral bodies are normal in height and are well aligned with no prevertebral soft tissue swelling. Disc spaces are well preserved. I see no radiographic evidence of significant neural foraminal narrowing. IMPRESSION: Negative cervical spine series. Signed by Rojelio Gonzalez MD 05/25/2016 12:15 P
== END ==
LOC: M LAB 09:41
PROVIDERS: ATTEND Family Medicine
DX: M54.2 Cervicalgia (principal)

== ENCOUNTER 2016-06-17 06:54 | Emergency (ER) | payer OTHER ==
[~2016-06-17] VITALS: Ht 170.2 cm; Wt 78.9 kg
[2016-06-17] MEDS ORDERED: TRAM50TA2 PO (07:05)
[2016-06-17] MEDS ORDERED: ACET30TAB PO (07:06)
[2016-06-17] MEDS ORDERED: VITA200028 PO (07:07)
--- NOTE | 2016-06-17 09:23 | REP ---
CT CERVICAL SPINE: CT cervical spine is performed in the axial plane. Sagittal and coronal reconstruction images are performed. There is no compression fracture or malalignment. There is no prevertebral soft tissue swelling. There is mild spurring and disc space narrowing at C7-T1. I suspect a large disc herniation at C3-4 with resultant severe spinal stenosis. Other disc levels demonstrate relatively mild diffuse disc bulging but no other level demonstrating significant spinal stenosis. Uncovertebral spurring appears to cause mild left-sided foraminal narrowing at the C3-4 level. 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 The interval between the dens and the anterior ring of C1 is normal. IMPRESSION: Suspect large disc herniation at C3-4 with resultant severe spinal stenosis. Recommend MRI of the cervical spine to further evaluate. Signed by Rojelio Gonzalez MD 06/17/2016 04:36 P
[2016-06-17] MEDS ORDERED: GABAPENTIN 300 MG CAP PO ONE (10:15)
--- NOTE | 2016-06-17 10:48 | REP ---
CERVICAL SPINE, TWO VIEWS: HISTORY: Neck pain. Flexion and extension views were obtained. The cervical spine is visualized from C1 to C6 in the lateral radiographs. There is no acute fracture or subluxation. The intervertebral discs are normal in height. IMPRESSION: There is no acute fracture or subluxation. Signed by Alejandro Mckenna MD 06/17/2016 10:56 A
--- NOTE | 2016-06-17 13:13 | REP ---
MRI CERVICAL SPINE WITHOUT CONTRAST: HISTORY: Disc herniation. COMPARISON: CT 06/17/2016. A small left paracentral disc protrusion is present at the C2-3 level. There is minimal effacement of the thecal sac without spinal cord compression. The C2 neural foramina are patent. A large central disc extrusion is present at the C3-4 level. There is marked spinal cord compression. Uncinate process hypertrophy is present on the left. This produces mild narrowing of the left C3 neural foramen. The right C3 neural foramen is patent. A small central disc protrusion is present at the C4-5 level. There is mild effacement of the thecal sac without spinal cord compression. The C4 neural foramina are patent. A disc bulge is present at the C5-6 level. There is minimal effacement of the thecal sac without spinal cord compression. The C5 neural foramina are patent. A disc bulge is present at the C6-7 level. There is minimal effacement of the thecal sac without spinal cord compression. The C6 neural foramina are patent. There is no other disc bulge or herniation. The remaining neural foramina are patent. The spinal cord is normal in signal intensity. Normal signal intensity is present in the cervical vertebral bodies. IMPRESSION: There is cervical spondylosis at the C2-3 through C6-7 levels most significant at the C3-4 level where there is marked spinal cord compression. Signed by Alejandro Mckenna MD 06/17/2016 01:14 P
[2016-06-17 14:39] LABS: BASO % 0.3 % (0.0-1.0); EOS # 0.3 K/mm3 (0.0-0.50); EOS % 4.5 % (0.0-3.0); LARGE UNSTAINED CELL # 0.1 K/mm3 (0.0-0.4); LARGE UNSTAINED CELL % 1.9 % (0.0-4.0); LYMPH # 2.7 K/mm3 (1.5-4.5); LYMPH % 36.1 % (24.0-44.0); MEAN CORPUSCULAR HEMOGLOBIN 32.5 pg (27.0-33.0); MEAN CORPUSCULAR HGB CONC 34.2 g/dl (32.0-36.5); MONO # 0.4 K/mm3 (0.0-0.8); MONO % 4.9 % (0.0-5.0); NEUTROPHILS # 3.9 K/mm3 (1.8-7.7); NEUTROPHILS % 52.4 % (36.0-66.0); PLATELET COUNT, AUTOMATED 230 k/mm3 (150-450); RED CELL DISTRIBUTION WIDTH 12.5 % (11.5-14.5); WHITE BLOOD COUNT 7.4 K/mm3 (4.0-10.0)
[2016-06-17 14:52] LABS: INR 0.96
[2016-06-17 14:57] LABS: ANION GAP 6 MEQ/L (8-16); BLOOD UREA NITROGEN 15 MG/DL (7-18); CALCIUM LEVEL 8.4 MG/DL (8.5-10.1); CARBON DIOXIDE LEVEL 27 MEQ/L (21-32); CHLORIDE LEVEL 108 MEQ/L (98-107); CREATININE FOR GFR 0.72 MG/DL (0.55-1.02); GLOMERULAR FILTRATION RATE > 60.0 (>58); GLUCOSE, FASTING 89 MG/DL (70-105); POTASSIUM SERUM 3.8 MEQ/L (3.5-5.1); SODIUM LEVEL 141 MEQ/L (136-145)
[2016-06-17 15:08] VITALS: BP 103/63
[2016-06-17] MEDS ORDERED: GABA-282 PO (16:16)
--- NOTE | 2016-06-17 16:48 | CR.PDOC ---
General Reason for Consultation/CC The patient is a 41-year-old female admitted with a reason for visit of Neck/ Arm Pain. History of Present Illness HISTORY OF PRESENT ILLNESS: This is a 41 year old pleasant female who presented to the ED with complaints of left arm and neck pain. She reports at least a 3 month history of neck pain. The pain travels down her left arm. She also reports numbness and weakness in her left arm. She has noticed recently she has been tripping over her own feet during ambulation. No reported falls. She has been taking pain medications prescribed by her PCP and reports no relief in her symptoms. ALLERGIES: Please see below. HOME MEDICATIONS: Please see below. PAST MEDICAL HISTORY: 1. Neck pain 2. Low back pain 3. Tobacco dependence 4. Vitamin D deficiency SOCIAL HISTORY: Marital status and/or living arrangements: She lives at home with her and 3 of her 7 children. 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 GENERAL APPEARANCE: Sitting comfortably on the exam table. Alert and orientated. NEURO: There is no muscle wasting noted. Muscle tone is appropriate. Muscle weakness noted with scapular elevation, wrist flexion and extension, elbow flexion and extension, and finger flexion on the left side. Finger abduction bilaterally is weak as well. Muscle strength is 5/5 in the lower extremities. Sensation is decreased slightly in the C6,7,8 dermatomes on the left. Romberg's test is negative. She is able to walk on her heels and toes. Tandem gait is performed with moderate amount of difficulty. There is no ankle clonus. Babinski is downgoing bilaterally. LABORATORY DATA: Please see below. CT and MRI of the neck show multiple areas of disc bulge with the most significant at C3-4 resulting in severe spinal cord compression. Recommend cervical xray lateral views. IMPRESSION: 1. Cervical spondylosis with myelopathy most significant at C3-4 2. Tobacco dependence PLAN/RECOMMENDATIONS: This is a 41 year old pleasant female who presented to the ED frustrated with her neck and arm pain. She was found to have spinal cord compression at the C3- 4 level. These findings were discussed with patient and her family. Patient is a suitable candidate for surgery regarding the spinal cord compression. However, her chronic tobacco use puts her at a higher risk for healing complications post op. This was discussed at length with patient and her family. Smoking cessation was strongly encouraged prior to operation. Long discussion with patient regarding smoking cessation prior to surgery. Also strongly recommended avoid alcohol, working, and other physical activities. Discussed her increased risk of paralysis if she falls or sudden movements of neck flexion/extension or lateral rotation. Patient and her family understand these risks. She is to wear the hard C-collar during the day for increased protection. She understands this collar will not help if she is to fall or move neck suddenly. She is to stay out of work until further notice. We will be following up with the patient in the office to further discuss the surgical role of treatment for her cervical spondylosis with myelopathy. She is to call her PCP if help with smoking cessation is needed. Pre-op lab work has kindly been ordered by emergency dept PA. Time spent with patient and family: greater than 30 minutes Thank you for the consultation. Vital Signs/I&O Vital Signs Date Time Temp Pulse Resp B/P (MAP) Pulse Ox O2 Delivery O2 Flow Rate FiO2 06/17/16 15:08 97.7 62 18 103/63 (76) 100 Room Air Laboratory Data 24H Labs Laboratory Tests 2 06/17/16 14:23: White Blood Count 7.4, Red Blood Count 4.44, Hemoglobin 14.4, Hematocrit 42.2, Mean Corpuscular Volume 95.0, Mean Corpuscular Hemoglobin 32.5, Mean Corpuscular Hemoglobin Concent 34.2, Red Cell Distribution Width 12.5, Platelet Count 230, Neutrophils (%) (Auto) 52.4, Lymphocytes (%) (Auto) 36.1, Monocytes ( %) (Auto) 4.9, Eosinophils (%) (Auto) 4.5H, Basophils (%) (Auto) 0.3, Neutrophils # (Auto) 3.9, Lymphocytes # (Auto) 2.7, Monocytes # (Auto) 0.4, Eosinophils # (Auto) 0.3, Basophils # (Auto) 0.0, Large Unclassified Cells % 1.9 , Large Unclassified Cells # 0.1, Prothrombin Time 12.9, Prothromb Time International Ratio 0.96, Activated Partial Thromboplast Time 32.6, Anion Gap 6L , Glomerular Filtration Rate > 60.0, Blood Urea Nitrogen 15, Creatinine 0.72, Sodium Level 141, Potassium Level 3.8, Chloride Level 108H, Carbon Dioxide Level 27, Calcium Level 8.4L CBC/BMP Laboratory Tests 06/17/16 14:23 Red Blood Count 4.44, Mean Corpuscular Volume 95.0, Mean Corpuscular Hemoglobin 32.5, Mean Corpuscular Hemoglobin Concent 34.2, Red Cell Distribution Width 12.5 , Neutrophils (%) (Auto) 52.4, Lymphocytes (%) (Auto) 36.1, Monocytes (%) (Auto ) 4.9, Eosinophils (%) (Auto) 4.5 H, Basophils (%) (Auto) 0.3, Neutrophils # ( Auto) 3.9, Lymphocytes # (Auto) 2.7, Monocytes # (Auto) 0.4, Eosinophils # (Auto ) 0.3, Basophils # (Auto) 0.0, Calcium Level 8.4 L Allergies Coded Allergies: No Known Allergies (Verified Allergy, Unknown, 10/08/08) Home Medications Scheduled Acetaminophen/Codeine (Tylenol/Codeine #3) Tab, 1 TAB PO Q8H, (Reported) Ergocalciferol (Vitamin D2) 2,000 Unit Tab, 2,000 UNIT PO ASDIRECTED, (Reported) Gabapentin (Gabapentin) 300 Mg Cap, 300 MG PO TID Tramadol HCl (Tramadol HCl) 50 Mg Tab, 50 MG PO Q6H, (Reported) Scheduled PRN Acetaminophen/Hydrocodone (Bosque, Anexsia 5/325) 1 Tab Tab, 2 TAB PO Q4HP PRN for PAIN, (Reported) Aluminum/Magnesium/Simeth (Maalox Regular Strength 200-200-20 mg/5Ml) 1 Adore Adore , 30 ML PO Q4HP PRN for HEARTBURN, (Reported) Ibuprofen (Motrin Ib) 200 Mg Tab, 600 MG PO Q6HP PRN for PAIN, (Reported) REJI FONSECA PA-C Jun 17, 2016 16:42
--- NOTE | 2016-06-24 16:47 | REP ---
CERVICAL SPINE: REASON: Pain. The examination is dated 06/17/2016 obtained at 4:16 p.m. but it has been brought to my attention for the first time for interpretation today at this time. A lateral view of the mandible and partial lateral view of the cervical spine has been compared to a lateral view of the cervical spine obtained 06/17/2016 at 10:12 a.m. No abnormality is noted. Signed by David Rios DO 06/24/2016 05:02 P
== END 2016-06-17 16:30 | disposition home or self-care (01) ==
LOC: M ED 07:58
DX: M50.20 Other cervical disc displacement, unspecified cervical region (principal); M48.02 Spinal stenosis, cervical region; E78.00 Pure hypercholesterolemia, unspecified; G47.33 Obstructive sleep apnea (adult) (pediatric); F17.210 Nicotine dependence, cigarettes, uncomplicated; Z79.1 Long term (current) use of non-steroidal anti-inflammatories (NSAID); Z79.899 Other long term (current) drug therapy

== ENCOUNTER → 2016-06-28 | Outpatient (CLI) | payer OTHER ==
[~2016-06-28] MED LIST changes: +ACET30TAB PO; +GABA-282 PO; +TRAM50TA2 PO; +VITA200028 PO; +VITA50003 PO
[2016-06-28 11:27] LABS: BASO % 0.3 % (0.0-1.0); EOS # 0.1 K/mm3 (0.0-0.50); LARGE UNSTAINED CELL # 0.1 K/mm3 (0.0-0.4); LYMPH # 1.8 K/mm3 (1.5-4.5); LYMPH % 25.8 % (24.0-44.0); MEAN CORPUSCULAR HGB CONC 33.6 g/dl (32.0-36.5); MEAN CORPUSCULAR VOLUME 98.2 fl (80.0-96.0); MONO # 0.3 K/mm3 (0.0-0.8); MONO % 3.8 % (0.0-5.0); NEUTROPHILS # 4.5 K/mm3 (1.8-7.7); NEUTROPHILS % 66.1 % (36.0-66.0); PLATELET COUNT, AUTOMATED 209 k/mm3 (150-450); RED CELL DISTRIBUTION WIDTH 12.6 % (11.5-14.5); WHITE BLOOD COUNT 6.8 K/mm3 (4.0-10.0)
[2016-06-28 11:30] LABS: ALBUMIN 3.9 GM/DL (3.2-5.2); ALKALINE PHOSPHATASE 54 U/L (45-117); ALT/SGPT 14 U/L (12-78); ANION GAP 6 MEQ/L (8-16); AST/SGOT 6 U/L (15-37); BILIRUBIN,TOTAL 0.6 MG/DL (0.2-1.0); BLOOD UREA NITROGEN 17 MG/DL (7-18); CALCIUM LEVEL 8.7 MG/DL (8.5-10.1); CARBON DIOXIDE LEVEL 27 MEQ/L (21-32); CHLORIDE LEVEL 106 MEQ/L (98-107); CREATININE FOR GFR 0.77 MG/DL (0.55-1.02); GLOMERULAR FILTRATION RATE > 60.0 (>58); GLUCOSE, FASTING 72 MG/DL (70-105); POTASSIUM SERUM 4.2 MEQ/L (3.5-5.1); SODIUM LEVEL 139 MEQ/L (136-145); TOTAL PROTEIN 6.9 GM/DL (6.4-8.2)
== END ==
LOC: M LAB 10:20
PROVIDERS: ATTEND Neurological Surgery
DX: Z01.818 Encounter for other preprocedural examination (principal)

== ENCOUNTER → 2016-07-01 | Outpatient (CLI) | payer OTHER ==
--- NOTE | 2016-07-01 15:02 | REP ---
CT study of the cervical spine without contrast: STEALTH protocol utilized. History: Myalgia. Unspecified cord compression. Comparison cervical spine CT study is from June 17, 2016. Comparison MRI study June 17, 2016 confirmed a large disc herniation at C 03/04 with significant cord compression. Technique: Helical scanning is acquired and overlapping 2 mm high resolution axial images were generated and reviewed at bone and soft tissue window settings. Coronal and sagittal multiplanar re-formations images are generated. STEALTH protocol utilized. CT findings: There is no evidence of cervical spine element fracture. No skull base fracture is seen. Cervical vertebral body heights are preserved. Alignment is normal. Facet joints are normally aligned bilaterally at each cervical level on multiplanar re-formations images. There is no evidence of intraspinal or paraspinal hematoma. No extra vertebral abnormality is seen. A large left paracentral disc protrusion is again visible at C3-4 disc producing cord and central canal compression. This is better displayed on MRI imaging. It is unchanged by CT. There is bilateral uncovertebral spurring at C3-4, left more so than right. There are degenerative disc changes at C7-T1. Impression: Evidence of a large to herniation C3-4 as seen on recent prior studies. Left-sided neural foraminal narrowing from uncovertebral spurring at C3-4. Some degenerative disc changes at C 71. Otherwise negative CT study of the cervical spine without contrast. Signed by Ciaran Wright MD 07/01/2016 02:54 P
== END ==
LOC: M RAD 13:08
PROVIDERS: ATTEND Neurological Surgery
DX: G95.20 Unspecified cord compression (principal); M79.1 Myalgia

== ENCOUNTER 2016-07-04 07:38 | Inpatient (IN) | payer OTHER ==
[~2016-07-04] VITALS: Ht 170.2 cm; Wt 74.6 kg
[2016-07-04] MEDS ORDERED: THROMBIN SOLN 20,000 UNITS KIT As Ordered ONE (07:41)
[2016-07-04] MEDS ORDERED: BACITRACIN OINT 30GM As Ordered ONE (07:42)
[2016-07-04] MEDS ORDERED: BACITRACIN PWD 50,000 UNITS VIAL As Ordered ONE ×4 (07:42→15:42)
[2016-07-04] MEDS ORDERED: LR 1,000 ML IV ONE (08:00)
[2016-07-04] MEDS ORDERED: methylPREDNISolone SUSP 40 MG/ML (DEPO-medrol) VIAL (J1030) As Ordered ONE (08:12)
[2016-07-04] MEDS ORDERED: TRANEXAMIC ACID 100 MG/ML 10ML VIAL As Ordered ONE (08:12)
[2016-07-04] MEDS ORDERED: LIDOCAINE 2% INJ 100 MG/5 ML SDV (FOR ANES.) As Ordered ONE (08:18)
[2016-07-04] MEDS ORDERED: PROPOFOL 200 MG/20 ML VIAL As Ordered ONE ×7 (08:18→17:17)
[2016-07-04] MEDS ORDERED: fentaNYL 250 MCG/5 ML INJECTION (J3010) As Ordered ONE (08:18)
[2016-07-04] MEDS ORDERED: ONDANSETRON 4MG/2ML VIAL (J2405) As Ordered ONE ×2 (08:18→17:52)
[2016-07-04] MEDS ORDERED: REMIFENTANIL 1MG 3ML VIAL As Ordered ONE ×5 (08:18→17:12)
[2016-07-04] MEDS ORDERED: ROCURONIUM BROMIDE 50 MG/5 ML VIAL As Ordered ONE (08:18)
[2016-07-04] MEDS ORDERED: PROPOFOL 500 MG/50 ML VIAL As Ordered ONE ×4 (08:18→15:41)
[2016-07-04] MEDS ORDERED: MIDAZOLAM INJ 2 MG/2 ML VIAL (J2250) As Ordered ONE (08:18)
[2016-07-04] MEDS ORDERED: PHENYLEPHRINE INJ 10MG/ML VIAL (J2370) As Ordered ONE ×2 (08:57→17:18)
[2016-07-04] MEDS ORDERED: SCOPOLAMINE 1.5 MG TRANSDERMAL As Ordered ONE (09:18)
[2016-07-04] MEDS ORDERED: SCOPOLAMINE 1.5 MG TRANSDERMAL TOP ONE (09:30)
[2016-07-04] MEDS ORDERED: LIDOCAINE 1% MDV 20ML VIAL As Ordered ONE (10:29)
--- NOTE | 2016-07-04 10:30 | IPNPDOC ---
Date Seen The patient was seen on 07/04/16. Progress Note NEUROSURGERY PREOPERATIVE NOTE Mrs Cummings was seen in the pre-op area by Dr Kruger and WILLOW Martinez. She is accompanied by many family members. She is a 41 yo R-handed F who has been found to have a large C3-4 disc herniation with significant spinal cord compression. She is scheduled to undergo a posterior laminectomy and discectomy of C3-[address] Kruger. This is a 2-stage procedure and she will have anterior approach with intervertebral implant placement , lateral mass bilateral screw placement C3-4 and instrumental and bone effusion with graft tomorrow by Dr Kruger. She understands her options for treatment as we have previously discussed. Discussed the standard of care for treatment regarding her significant spinal cord compression is surgical intervention. Physical Exam: Alert and orientated. Speech is fluent. No new focal neuro deficits noted on exam. Discussed the significant complications which can arise postop in smokers which can include but not limited to delayed wound healing, increased risk of infection, cardiac and pulmonary complications. She understands surgery is not curative and she may require multiple surgeries in the future. She understands that no guarantees can be given of any kind and aware of the scope, expected outcome, sequela, and all possible risks of surgery. Risks of surgery discussed include but not limited to , coma, CSF leak, meningitis, seizure disorder, persistent vegetative state, loss of vital body functions, damage to vocal cords, paralysis of vocal cords, damage to larynx, dependency on life support, persistence or worsening of symptoms or deficits, failure of surgery, need for multiple surgeries, infection, bleeding, blood clots or DVT, PE, DE, CVA, loss of swallowing, need for feeding tube, quadriparesis, and any catastrophic sequela. She wishes to proceed with the proposed surgery. She has received medical clearance from her PCP. She currently denies any chest pain, sob, abd pain, N/V/D. No recent illnesses. All questions have been answered to her and her families satisfaction. ARIK Martinez VS, I&O, 24H, Fishbone Vital Signs/I&O Vital Signs Date Time Temp Pulse Resp B/P (MAP) Pulse Ox O2 Delivery O2 Flow Rate FiO2 07/04/16 08:44 97.5 56 20 109/59 (76) 99 Room Air FONSECA,REJI R. PA-C July 04, 2016 10:30
[2016-07-04] MEDS ORDERED: ceFAZolin 1GM INJ (J0690) As Ordered ONE ×3 (11:27→15:16)
[2016-07-04] MEDS ORDERED: ePHEDrine SULFATE 25 MG/5 ML(5MG/ML) SYRINGE As Ordered ONE ×2 (11:54→14:03)
[2016-07-04] MEDS ORDERED: GLYCOPYRROLATE INJ 0.2 MG/ML 2 ML VIAL As Ordered ONE (11:54)
[2016-07-04] MEDS ORDERED: dexameTHASONE 4 MG/ML 1ML VIAL (J1100) As Ordered ONE (11:54)
[2016-07-04] MEDS ORDERED: HYDROmorphone HCL 2 MG/ML 1ML VIAL (J1170) As Ordered ONE (13:06)
[2016-07-04] MEDS ORDERED: METOCLOPRAMIDE INJ 10MG/2ML VIAL (J2765) As Ordered ONE (15:46)
[2016-07-04] MEDS ORDERED: LR 1,000 ML IV SCH (19:15)
[2016-07-04] MEDS ORDERED: MORPHINE 2 MG/ML 1ML SYRINGE IV PRN (19:15)
[2016-07-04] MEDS ORDERED: NORCO, ANEXSIA 5/325MG TABLET (HYDROcodone/ACETAMINOPHEN) PO PRN (19:15)
[2016-07-04] MEDS ORDERED: fentaNYL 100 MCG/2 ML INJECTION (J3010) IV PRN (19:15)
[2016-07-04] MEDS ORDERED: ONDANSETRON 4MG/2ML VIAL (J2405) IV PRN ×2 (19:15)
[2016-07-04] MEDS ORDERED: PERCOCET 5MG/325MG TAB PO PRN (19:15)
[2016-07-04] MEDS ORDERED: MORPHINE 4 MG/ML 1ML SYRINGE IV PRN (19:15)
[2016-07-04] MEDS ORDERED: METOCLOPRAMIDE INJ 10MG/2ML VIAL (J2765) IV PRN (19:15)
[2016-07-04] MEDS ORDERED: ACETAMINOPHEN TAB 650MG DOSE (2X325MG) PO PRN (19:15)
[2016-07-04] MEDS: HYDROmorphone HCL 1 MG/ML SYRINGE (J1170) IV PRN ×2 (19:39→20:55)
[2016-07-04 21:20] VITALS: BP 93/58
[2016-07-04] MEDS: ceFAZolin SOD 1 GM in D5W MINI-BAG PLUS 50 ML IV SCH (21:36)
[2016-07-04] MEDS: KCL 20MEQ IN D5/0.45NS 1000ML 1,000 ML IV SCH (21:37)
[2016-07-04 21:49] VITALS: BP 105/64
[2016-07-04] MEDS: NORCO, ANEXSIA 5/325MG TABLET (HYDROcodone/ACETAMINOPHEN) PO PRN (22:39)
[2016-07-04 22:50] VITALS: BP 112/65
[2016-07-04 23:00] VITALS: O2SAT 95
[2016-07-04 23:50] VITALS: BP 105/62
[2016-07-05] VITALS (13 sets, daily range): BP systolic 93–107; BP diastolic 50–66; O2SAT 95–97
[2016-07-05] MEDS: NORCO, ANEXSIA 5/325MG TABLET (HYDROcodone/ACETAMINOPHEN) PO PRN (04:06)
[2016-07-05] MEDS: ceFAZolin SOD 1 GM in D5W MINI-BAG PLUS 50 ML IV SCH ×3 (04:07→22:23)
[2016-07-05] MEDS: KCL 20MEQ IN D5/0.45NS 1000ML 1,000 ML IV SCH (06:11)
[2016-07-05] MEDS ORDERED: TRANEXAMIC ACID 100 MG/ML 10ML VIAL As Ordered ONE (07:21)
[2016-07-05] MEDS ORDERED: BACITRACIN OINT 30GM As Ordered ONE (07:21)
[2016-07-05] MEDS ORDERED: methylPREDNISolone SUSP 40 MG/ML (DEPO-medrol) VIAL (J1030) As Ordered ONE (07:21)
[2016-07-05] MEDS ORDERED: BACITRACIN PWD 50,000 UNITS VIAL As Ordered ONE ×2 (07:21→16:55)
[2016-07-05] MEDS ORDERED: THROMBIN SOLN 20,000 UNITS KIT As Ordered ONE (07:22)
[2016-07-05] MEDS ORDERED: ceFAZolin 1GM INJ (J0690) As Ordered ONE ×2 (08:26→14:52)
--- NOTE | 2016-07-05 08:45 | REP ---
Clinical: Spinal cord compression. Technique: Intraoperative fluoroscopic imaging. Findings: Multiple intraoperative fluoroscopic images demonstrate the patient to be subsequent C3-4 laminectomy. Total fluoroscopic time 9 seconds. Impression: Status post C3-4 laminectomy. Signed by Mike Caldwell MD 07/05/2016 08:36 A
[2016-07-05] MEDS ORDERED: LIDOCAINE 1% MDV 20ML VIAL As Ordered ONE (09:31)
[2016-07-05] MEDS ORDERED: PROPOFOL 200 MG/20 ML VIAL As Ordered ONE ×5 (10:22→16:09)
[2016-07-05] MEDS ORDERED: REMIFENTANIL 1MG 3ML VIAL As Ordered ONE ×2 (10:56→14:59)
[2016-07-05] MEDS ORDERED: PHENYLEPHRINE INJ 10MG/ML VIAL (J2370) As Ordered ONE (11:23)
[2016-07-05] MEDS ORDERED: PROPOFOL 500 MG/50 ML VIAL As Ordered ONE ×3 (11:36→16:33)
[2016-07-05] MEDS ORDERED: HYDROmorphone HCL 2 MG/ML 1ML VIAL (J1170) As Ordered ONE (11:44)
[2016-07-05] MEDS ORDERED: ePHEDrine SULFATE 25 MG/5 ML(5MG/ML) SYRINGE As Ordered ONE (12:30)
[2016-07-05] MEDS ORDERED: dexameTHASONE 4 MG/ML 1ML VIAL (J1100) As Ordered ONE ×2 (12:43→18:29)
[2016-07-05] MEDS ORDERED: MORPHINE 1MG/ML IN 0.9% NACL 100ML IV BAG As Ordered ONE (18:02)
[2016-07-05] MEDS ORDERED: ONDANSETRON 4MG/2ML VIAL (J2405) IV PRN ×3 (18:30→19:15)
[2016-07-05] MEDS ORDERED: diphenhydrAMINE INJ 50MG/ML VIAL (J1200) IV PRN (18:30)
[2016-07-05] MEDS ORDERED: NALOXONE INJ 0.4 MG/1 ML VIAL (J2310) IV PRN (18:30)
[2016-07-05] MEDS ORDERED: EPIDURAL/PCA KEYS XX PRN (18:30)
[2016-07-05] MEDS ORDERED: KCL 20MEQ IN D5/0.45NS 1000ML 1,000 ML IV SCH (18:30)
[2016-07-05] MEDS ORDERED: NALBUPHINE HCL 10 MG/ML AMP (J2300) IV PRN (18:30)
[2016-07-05] MEDS ORDERED: MORPHINE 1MG/ML IN 0.9% NACL 100ML IV BAG IV PRN (18:30)
[2016-07-05] MEDS ORDERED: PERCOCET 5MG/325MG TAB PO PRN (19:15)
[2016-07-05] MEDS ORDERED: HYDROmorphone HCL 1 MG/ML SYRINGE (J1170) IV PRN (19:15)
[2016-07-05] MEDS ORDERED: LR 1,000 ML IV SCH (19:15)
[2016-07-05] MEDS ORDERED: fentaNYL 100 MCG/2 ML INJECTION (J3010) IV PRN (19:15)
[2016-07-05 19:29] LABS: MEAN CORPUSCULAR HEMOGLOBIN 33.1 pg (27.0-33.0); MEAN CORPUSCULAR VOLUME 97.3 fl (80.0-96.0); RED CELL DISTRIBUTION WIDTH 12.7 % (11.5-14.5); WHITE BLOOD COUNT 8.7 K/mm3 (4.0-10.0)
[2016-07-05 19:43] LABS: ANION GAP 4 MEQ/L (8-16); BLOOD UREA NITROGEN 8 MG/DL (7-18); CALCIUM LEVEL 7.6 MG/DL (8.5-10.1); CARBON DIOXIDE LEVEL 27 MEQ/L (21-32); CHLORIDE LEVEL 114 MEQ/L (98-107); CREATININE FOR GFR 0.69 MG/DL (0.55-1.02); GLOMERULAR FILTRATION RATE > 60.0 (>58); GLUCOSE, FASTING 106 MG/DL (70-105); SODIUM LEVEL 145 MEQ/L (136-145)
--- NOTE | 2016-07-05 20:40 | ROOPDOC ---
[facility] Report Of Operation Report of Operation DATE OF SURGERY: 07/04/2016 SURGEON: Dr. Antoni Kruger GLASS FORMING ENGINEER: Dr. Enriuqeta Franz PREOPERATIVE DIAGNOSIS: C3-4 central canal stenosis due disc protrusion POSTOPERATIVE DIAGNOSIS: Same PROCEDURE PERFORMED: 1. C3-C4 laminectomy, bilateral foarminotomies with decompression of spinal cord. 2. CT image-guided, computer assisted stereotactic C3-C4 towboat pilot hole placement in lateral mases bilaterally. 3. Fluoroscopic guidance for localization. 4. Intraoperative ultrasound use for spinal cord decompression 5. Electrophysiological monitoring of somatosensory and central motor evoked potentials of upper and lower extremities. ANESTHESIA: GETA. ESTIMATED BLOOD LOSS: 150 cc. FINDINGS : Non-pulsating spinal cord DRAINS: DONTE drain x 1 COMPLICATIONS: None. DISPOSITION: Stable to the PACU. INDICATIONS FOR THE PROCEDURE HISTORY: Ms. Cummings is a 41 y/o female, smoker, presented to [facility] ER with complains of neck pain and L hand numbness for several days. 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 Results of CT scan of C-spine reveled C3-4 disc protrusion and central canal compression of 50%. Given the progression of the symptoms and significant compression of her spinal cord on neuroimaging, the patient decided to proceed with operation, requiring laminectomy and decompression of the C3-4, discectomy, arthrodesis and instrumented fusion . SURGICAL RISKS: The patient and her family were well apprised of all objectives, benefits, risks and potential complications of the procedure, including but not limited to : worsening of current status, the possible need for further procedures, the risk of infection, headaches, CSF leak, possible spinal nerve injury resulting in paralysis, infection, injury to major vessels causing hemorrhage, stroke, loss of language function, coma and even . No assurance was given whether symptoms would improve following the procedure. The surgery is technically difficult procedure and despite the significant discomfort for the patient and the best effort of the physician, the surgery may be unsuccessful or may need to be aborted. Informed consent was obtained and secured in the chart after the patient and family voiced understanding of these risks and decided to proceed with the operation. DESCRIPTION OF THE PROCEDURE The patient was transferred to the operating room. She was given preoperative prophylactic IV antibiotics. ANESTHESIA: The patient was sedated and intubated without difficulty by the anesthesia service. Eyes were taped shut after ointment was applied to prevent corneal abrasion. A Wei Hugger was placed over the upper body to maintain control of core body temperature. A Galindo catheter was inserted. POSITIONING: A Kee head clamp was applied. The patient was turned prone on gel rolls of operation table. All pressure points were carefully padded. The hair was clipped over the area where she was to undergo the incision. Pre- prepping was done with alcohol. OPERATIVE TECHNIQUE: The patient was prepped and draped in the standard sterile fashion. The C-arm fluoroscopy was draped and brought in to the operative field and the C3- C4 was identified. The skin was subsequently opened sharply with a # 15 scalpel blade. Further dissection was carried down in the midline until the level of supraspinous ligament utilizing bipolar forceps and PlasmaBlade electrocautery for hemostasis. The muscle was elevated subperiosteally from C3- C5. Hemostasis was achieved. Self-retaining retractors were then inserted. The space was again confirmed utilizing fluoroscopy. Stereotactic CT scan of C-spine was done prior to the surgery and the images were transferred to the neuronavigational system. Next, three-dimensional images were reconstructed. The patient underwent co-registration of the preoperative stereotactic CT with her surface landmarks by surface matching technique. Accuracy was within 2mm. The neuronavigational probe was utilized to plan towboat pilot holes and screws trajectories. Utilizing a high-speed electric drill and Cl bit, towboat pilot holes were drilled bilaterally into the lateral masses of C3-C4 using woodpecker technique. All holes were sounded with a blunt feeler probe and were felt to be surrounded by cortical bone. All holes were approximately 10 mm in depth. The superior spinous processes of C3 and C4 were removed. With a ultrasound Bine Knife C3 and C4 laminectomies were performed and note was made that dural sack was not pulsating. Ultrasound machine was brought to OR and ultrasound probe was drape in sterile fashion. Ultrasound was used to obtain axial imaging of spinal cord confirming anterior compression and spinal cord pulsation. Then bilateral formanitomies were carried out at the C3 level.. Once the foraminotomies were performed, each nerve root was tracked within its neuroforamen and found to be decompressed and free. A DONTE drain was left in place. Hemostasis was again meticulously achieved utilizing bipolar and electrocautery. The wound was copiously irrigated with antibiotic saline solution until clear. The muscle was approximated with 0- polyglactin synthetic absorbable suture (Vicryl) and the fascia closed with 0- polyglactin synthetic absorbable suture (Vicryl). The subcutaneous tissue was approximated with 2-0 polyglactin synthetic absorbable suture (Vicryl). The skin was then approximated with surgical kortney.The incision was covered by Bacitracine ointment and was dressed in a clean dry dressing. Drains were secured to skin by 2.0 silk suture. All sponge counts, needle counts and instrument counts were correct at the end of the case times two. The patient tolerated the procedure well, without any complications and was transferred in stable condition to the recovery room. ANTONI KRUGER MD July 05, 2016 20:40
--- NOTE | 2016-07-05 21:37 | ROOPDOC ---
[facility] Report Of Operation Report of Operation DATE OF SURGERY: 07/05/2016 SURGEON: Dr. Antoni Kruger SENIOR CENTER MANAGER: ARANZA Toledo PREOPERATIVE DIAGNOSIS: C3-4 central canal stenosis due disc protrusion POSTOPERATIVE DIAGNOSIS: Same PROCEDURE PERFORMED: 1. C3-C4 anterior discectomy. 2. Microsurgical techniques, requiring use of operating microscope for discectomy and osteophytectomy 3. C3-C4 lnterbody arthrodesis. 4. C3-C4 placement of interbody cage Mosaic Cervical System [id number]( [employer]). 5. C3-C4 anterior instrumentation. 6. Use of allograft. 7. C3-C4 posterior lateral mass instrumentationwith screws and rods. 8. C3-C4 posterior arthrodesis 9. Fluoroscopic guidance for localization. 10. Electrophysiological monitoring of somatosensory and central motor evoked potentials of upper and lower extremities. ANESTHESIA: GETA. ESTIMATED BLOOD LOSS: 150 cc. FINDINGS : C3-C4 soft disc protrusion DRAINS: DONTE drain x 1 COMPLICATIONS: None. DISPOSITION: Stable to the PACU. INDICATIONS FOR THE PROCEDURE HISTORY: Ms. Cummings is a 41 y/o female, smoker, presented to [facility] ER with complains of neck pain and L hand numbness for several days. 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 Results of CT scan of C-spine reveled C3-4 disc protrusion and central canal compression of 50%. Given the progression of the symptoms and significant compression of her spinal cord on neuroimaging, the patient decided to proceed with operation, requiring laminectomy and decompression of the C3-4, discectomy, arthrodesis and instrumented fusion . She underwent first stage of surgical treatment with posterior cervical decompression on Jul 04 2016 without complications and scheduled 2nd stage of surgical treatment on following day. SURGICAL RISKS: The patient and her family were well apprised of all objectives, benefits, risks and potential complications of the procedure, including but not limited to : worsening of current status, the possible need for further procedures, the risk of infection, headaches, CSF leak, possible spinal nerve injury resulting in paralysis, infection, injury to major vessels causing hemorrhage, stroke, loss of language function, coma and even . No assurance was given whether symptoms would improve following the procedure. The surgery is technically difficult procedure and despite the significant discomfort for the patient and the best effort of the physician, the surgery may be unsuccessful or may need to be aborted. Informed consent was obtained and secured in the chart after the patient and family voiced understanding of these risks and decided to proceed with the operation. DESCRIPTION OF THE PROCEDURE The patient was transferred to the operating room. She was given preoperative prophylactic IV antibiotics. ANESTHESIA: The patient was sedated and intubated without difficulty by the anesthesia service. Eyes were taped shut after ointment was applied to prevent corneal abrasion. A Wei Hugger was placed over the upper body to maintain control of core body temperature. A Galindo catheter was inserted. POSITIONING: The electrophysiology monitoring team inserted needles in their proper locations and baseline SSEPs and motor-evoked potentials were obtained. A Eke head clamp was applied. The patient was turned supine on Rafa table with a gel roll underneath her head . All pressure points were carefully padded. A dianna has been attached to [facility] frame. OPERATIVE TECHNIQUE: The patient was prepped and draped in the standard sterile fashion. The C-arm fluoroscopy was draped and brought in to the operative field and the C3- C4 was identified and the area marked with a marking pen utilizing standard landmarks such as midline and cricoid cartilage. The skin was subsequently opened sharply with a # 15 scalpel blade. The incision was deepened through platysma muscle and the edges undermined using sharp dissection. Hemostasis was obtained utilizing Bovie electrocautery as well as the bipolar forceps. Further blunt and sharp dissection was carried down in the plane medial to the sternocleidomastoid muscle. Blunt dissection was performed medial to the carotid sheath down to the anterior longitudinal ligament in front of the spine. The C-arm fluoroscopy unit was draped with sterile drapes and brought into the operative field. The level of C3-C4 level was confirmed by placing a marker needle and fluoroscopic x-ray. The longus coli muscle was undermined with monopolar electrocautery on either side until the uncovertebral joints were exposed. Self-retaining retractors were then inserted underneath the longus coli musculature. 5 lb weight was placed on pulleys for distraction. The discectomy was initiated with an 11 blade by incising the annulus. The discectomy was carried out utilizing pituitary rongeurs, Kerrison rongeurs and currettes to widen and remove the anterior spur disc complex. The operating microscope was draped with sterile drapes and brought into the operative field and with microsurgical technique; the discectomy carried down to the level of the posterior longitudinal ligament. Using a ultrasound Bone Knife, abrasion of the disc end plates was performed and the posterior spur disc complex removed down to the level of the posterior longitudinal ligament. Several large disc fragments were removed from on top of the PLL using Codman up-angled curettes. The PLL was entered utilizing a sharp hook and incised using an 11 blade. The PLL was excised to completely expose the dura and further decompress the spinal cord. Osteophytectomy was completed by ultrasound Bone Knife drilling to excise the osteophytes at the posterior margin of the superior and inferior end plate. Neuroforamina on the Left) side was decompressed using the ultrasound drill and Kerrison rongeurs. Using a blunt nerve hook the foramina and undersurface of both vertebral bodies were tracked and the exiting nerve roots found to be well decompressed. The cleaned disc space was sized appropriately with a trial interbody cage. To achieve arthrodesis, the endplates were abrasioned again and a permanent 14 mm x 12 mm x 7 mm Mosaic interbody cage from ([employer]) was chosen and filled with demineralized bone matrix and inserted into the disc space. It fit well and was snug and screwed into place. Fluoroscopic x- ray confirmed good placement of the cage, plate and screws. The wound was irrigated with antibiotic solution and hemostasis achieved. The wound was closed in layers with Dermabond to skin. Patient was transferred to hospital bed. Frame of Rafa table was changed and patient was transferred on it in prone position. Kee clamp has been removed . All pressure points were carefully padded . A Wei Hugger was placed over the upper body to maintain control of core body temperature. The patient was prepped and draped in the standard sterile fashion. Wound was opened and self-retaining retractors were inserted. Wound was irrigated with 3 L warm sterile solution with antibiotics. Vacation Planner holes were tapped and screws measuring 12 mm were then screwed and tightened into the pre-drilled holes. Subsequently rods were cut and bent into the cervical curvature. The rods were inserted into the lateral mass screws and were tightened in place with locking nuts. Fluoroscopy confirmed good placement of the screws and rods. Visible cortical bone of the posterolateral masses were decorticated to prepare for better arthrodesis. A DONTE drain was left in place. Hemostasis was again meticulously achieved utilizing bipolar and electrocautery. The muscle was approximated with 0- polyglactin synthetic absorbable suture (Vicryl) and the fascia closed with 0- polyglactin synthetic absorbable suture (Vicryl). The subcutaneous tissue was approximated with 2-0 polyglactin synthetic absorbable suture (Vicryl). The skin was then approximated with surgical kortney. The incision was covered by Bacitracine ointment and was dressed in a clean dry dressing. Drain was secured to skin by 2.0 silk suture. All sponge counts, needle counts and instrument counts were correct at the end of the case times two. The electrophysiological monitoring remained stable from baseline through the end of the procedure. The patient tolerated the procedure well, without any complications and was transferred in stable condition to the recovery room. ANTONI KRUGER MD July 05, 2016 21:37
[2016-07-05] MEDS: dexameTHASONE 4 MG/ML 1ML VIAL (J1100) IV SCH (22:22)
[2016-07-05] MEDS: GABAPENTIN 300 MG CAP PO SCH (22:22)
[2016-07-05] MEDS: CARISOPRODOL 350 MG TAB PO SCH (23:28)
[2016-07-06] VITALS (18 sets, daily range): BP systolic 88–103; BP diastolic 46–57; O2SAT 91–100
[2016-07-06] MEDS: dexameTHASONE 4 MG/ML 1ML VIAL (J1100) IV SCH (05:59)
[2016-07-06] MEDS: ceFAZolin SOD 1 GM in D5W MINI-BAG PLUS 50 ML IV SCH ×2 (06:00→15:27)
[2016-07-06] MEDS ORDERED: NS 1,000 ML IV SCH (06:30)
[2016-07-06] MEDS ORDERED: REMIFENTANIL 1MG 3ML VIAL As Ordered ONE (07:12)
[2016-07-06] MEDS ORDERED: fentaNYL 250 MCG/5 ML INJECTION (J3010) As Ordered ONE (07:12)
[2016-07-06] MEDS ORDERED: dexameTHASONE 4 MG/ML 1ML VIAL (J1100) As Ordered ONE (07:12)
[2016-07-06] MEDS ORDERED: MIDAZOLAM INJ 2 MG/2 ML VIAL (J2250) As Ordered ONE (07:12)
[2016-07-06] MEDS ORDERED: LIDOCAINE 2% INJ 100 MG/5 ML SDV (FOR ANES.) As Ordered ONE (07:12)
[2016-07-06] MEDS ORDERED: PROPOFOL 500 MG/50 ML VIAL As Ordered ONE (07:12)
[2016-07-06] MEDS ORDERED: ONDANSETRON 4MG/2ML VIAL (J2405) As Ordered ONE (07:12)
[2016-07-06] MEDS ORDERED: ROCURONIUM BROMIDE 50 MG/5 ML VIAL As Ordered ONE (07:12)
[2016-07-06] MEDS ORDERED: SUCCINYLCHOLINE 100 MG/5 ML SYRINGE (J0330) As Ordered ONE (07:12)
[2016-07-06] MEDS ORDERED: PROPOFOL 200 MG/20 ML VIAL As Ordered ONE (07:12)
[2016-07-06] MEDS ORDERED: PHENYLEPHRINE INJ 10MG/ML VIAL (J2370) As Ordered ONE (07:12)
--- NOTE | 2016-07-06 08:30 | REP ---
Partial cervical spine series: Four views. History: Spinal cord decompression. 31 seconds of fluoroscopy time is reported. Findings: A sequence of four fluoroscopically obtained intraprocedural last image hold spot radiographs of the cervical spine document dorsal and ventral cervical spine fusion across the C3-4 intervertebral level. Signed by Ciaran Wright MD 07/06/2016 09:05 A
[2016-07-06] MEDS: GABAPENTIN 300 MG CAP PO SCH ×3 (09:36→21:01)
[2016-07-06] MEDS: ACETAMINOPH W/CODEINE #3 TAB UD PO PRN ×2 (09:37→17:10)
[2016-07-06] MEDS: CARISOPRODOL 350 MG TAB PO SCH ×4 (09:51→21:01)
--- NOTE | 2016-07-06 11:19 | REP ---
CT CERVICAL SPINE WITHOUT CONTRAST: 07/06/2016. Comparison: 07/01/2016. Clinical history: Status post C3-4 anterior and posterior discectomy and fusion on 07/04/2016. Findings: Standard CT protocol was followed. Coronal and sagittal reconstructions performed. There is now a disc spacer at the C3-4 level. There are screws from anterior discectomy and fusion in the C3 and C4 vertebral body, one each. There are posterior pedicle screws at C3 and C4 with fusion bars. A looped surgical drain curves around the surgical site on both sides in the posterior soft tissues. Laminectomy performed at the C3 level. Mild spondylosis with anterior osteophytes at C7-T1 unchanged. There is ample cross-sectional area of the cervical canal at the C3-4 level now. There are some subcutaneous air pockets and in the paravertebral strap muscles in the neck adjacent to the surgical site and dura as well as at the disc space all related to the recent surgery. There is an air-fluid level in the right neck below the level of the submandibular gland from surgical access which is at the level of the anterior fusion. Airway intact. There is some prevertebral swelling, appropriate for postsurgical stage. No masses. Impression: 1. Status post anterior and posterior fusion with discectomy at C3-4 with hardware screws in both vertebral levels and in the pedicles posteriorly at this level on both sides of the joint. A drain is seen posterior to the joint on both sides. There is a single looped catheter and there are some subcutaneous air pockets in paraspinal posterior strap muscles adjacent to the surgical site, disc space and prevertebral space all appropriate for immediate postoperative state for about 48 hours. Signed by Davian Finley MD 07/06/2016 12:28 P
[2016-07-07] VITALS (20 sets, daily range): BP systolic 70–110; BP diastolic 32–59; O2SAT 95–100
[2016-07-07] MEDS: ACETAMINOPH W/CODEINE #3 TAB UD PO PRN ×4 (00:02→23:58)
[2016-07-07] MEDS: ACETAMINOPHEN TAB 650MG DOSE (2X325MG) PO PRN (04:34)
[2016-07-07 05:37] LABS: MEAN CORPUSCULAR HEMOGLOBIN 32.5 pg (27.0-33.0); MEAN CORPUSCULAR HGB CONC 33.3 g/dl (32.0-36.5); MEAN CORPUSCULAR VOLUME 97.6 fl (80.0-96.0); RED CELL DISTRIBUTION WIDTH 12.8 % (11.5-14.5); WHITE BLOOD COUNT 12.2 K/mm3 (4.0-10.0)
[2016-07-07 06:46] LABS: EOSINOPHILS 4 % (0-5)
[2016-07-07] MEDS: CARISOPRODOL 350 MG TAB PO SCH ×4 (08:12→20:24)
[2016-07-07] MEDS: GABAPENTIN 300 MG CAP PO SCH ×3 (08:12→20:24)
[2016-07-07] MEDS ORDERED: tiZANidine 4 MG TAB PO ONE (08:45)
[2016-07-07] MEDS ORDERED: MORPHINE 2 MG/ML 1ML SYRINGE IV ONE (08:45)
--- NOTE | 2016-07-07 13:56 | IPN ---
DATE: 07/06/2016 SUBJECTIVE: Ms. Cummings is status post anterior cervical discectomy and fusion at C3-4 and posterior instrumentation at C3-4. Overall, she states that she is doing very well. She does have some posterior cervical spine interscapular stiffness and soreness. She reports left arm numbness today. No arm or hand pain. No bowel or bladder dysfunction. No headaches. No trouble swallowing. No troubles with her voice. No shortness of breath. No chest pain. No other symptoms. PHYSICAL EXAMINATION: Vital signs, laboratory data in electronic medical record (EMR) reviewed. She is conscious, alert and oriented times three. Incision, anterior and posterior cervical spine are clean, dry, no erythema. No discharge. No signs of infection. Speech is clear and fluent. Smile symmetrical. She has good strength in her bilateral biceps, triceps, deltoid and actuarial internship strength at 5/5. Quadriceps, hamstring, gastrocs, anterior tibialis are 5/5. Her posterior Rafa-Deshpande drain was removed without complication or incident. ASSESSMENT: Spinal cord compression cervical myelopathy, status post anterior cervical discectomy and fusion, and posterior instrumentation at C3-4. PLAN: Patient is stable. She is being evaluated by physical therapy. Her hemoglobin and hematocrit are slightly low with hemoglobin at 9.3 and hematocrit of 27.3. We will repeat this in the morning. If everything is stable and the patient is doing well, we will hopefully plan on discharge tomorrow. YARI
--- NOTE | 2016-07-07 15:50 | IPN ---
DATE: 07/07/2016 Ms. Cummings is day 2 status post anterior cervical diskectomy and fusion and posterior pedicle screws, rods, and instrumentation, lateral mass fusion. She is day 3 status post posterior C3-4 laminectomy. Overall she states that she is doing well. At this time she has no pain. No trouble with voice, no trouble swallowing She denies any headache. No lightheadedness. No dizziness. No chest pain. No shortness of breath. She denies any arm or hand pain but does have some tingling still in her left arm, but this is much less than before surgery. No bowel or bladder dysfunction. She states that she is doing well. She took a shower this morning without problems or complications. She denies any fevers or chills. This morning her hemoglobin and hematocrit were low at 7.4 and 22.3, respectively. Dr. Kruger ordered 1 unit blood transfusion. Patient had an elevated WBC at 12.2. Nursing has no concerns or issues. The patient, though, is requesting to be able to go in a wheelchair down to the cafeteria with family members. OBJECTIVE: No acute distress. Well developed, well nourished. Both anterior and posterior incisions are clean, dry. No erythema. No discharge. No signs of infection. Vital signs and laboratory data are noted in the electronic medical record (EMR). 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 She is alert and oriented times three. Judgment and insight good. Mood and appropriate to setting. ASSESSMENT/PLAN: Cervical myelopathy status post anterior cervical diskectomy and fusion, C3-4, and posterior C3-4 laminectomy, pedicle screws, rods, lateral mass fusion, C3-4. Patient is doing well postoperatively. She is receiving 1 unit of blood due to her low hemoglobin and hematocrit. She denies any lightheadedness, dizziness. No shortness of breath. No chest pain. She did have an elevated white blood cell count today. We will repeat complete blood count (CBC) in the morning. Did advise her and nursing staff that it is all right for her to ride in a wheelchair down to the cafeteria with her family. No walking. Will continue to monitor. If patient is doing well in the morning tomorrow, will discharge her home. YARI
[2016-07-08] VITALS (16 sets, daily range): BP systolic 109–114; BP diastolic 54–65; O2SAT 96–99
[2016-07-08] MEDS: ACETAMINOPHEN TAB 650MG DOSE (2X325MG) PO PRN (04:16)
[2016-07-08 05:20] LABS: BASO % 0.2 % (0.0-1.0); EOS # 0.3 K/mm3 (0.0-0.50); EOS % 3.2 % (0.0-3.0); LARGE UNSTAINED CELL # 0.2 K/mm3 (0.0-0.4); LARGE UNSTAINED CELL % 1.9 % (0.0-4.0); LYMPH # 3.6 K/mm3 (1.5-4.5); LYMPH % 41.6 % (24.0-44.0); MEAN CORPUSCULAR HEMOGLOBIN 32.7 pg (27.0-33.0); MEAN CORPUSCULAR HGB CONC 33.6 g/dl (32.0-36.5); MEAN CORPUSCULAR VOLUME 97.2 fl (80.0-96.0); MONO # 0.4 K/mm3 (0.0-0.8); MONO % 4.5 % (0.0-5.0); NEUTROPHILS % 48.6 % (36.0-66.0); PLATELET COUNT, AUTOMATED 173 k/mm3 (150-450); WHITE BLOOD COUNT 8.2 K/mm3 (4.0-10.0)
[2016-07-08] MEDS ORDERED: DOCUSATE SODIUM 100 MG CAP PO SCH (09:00)
[2016-07-08] MEDS: GABAPENTIN 300 MG CAP PO SCH ×2 (09:42→16:10)
[2016-07-08] MEDS: CARISOPRODOL 350 MG TAB PO SCH ×3 (09:42→16:10)
[2016-07-08] MEDS ORDERED: LACTULOSE 20 GM/30 ML SYRUP UD PO ONE (10:45)
[2016-07-08] MEDS ORDERED: NYST50SS SS (16:18)
--- NOTE | 2016-07-14 13:27 | DS.PDOC ---
Discharge Summary General Date of Admission July 04, 2016 at 07:38 Date of Discharge 07/08/16 Discharge Summary PROCEDURES PERFORMED DURING STAY: 07/04/16. 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 07/05/16. C3-C4 anterior discectomy and fusion. C3-C4 posterior lateral mass fusion with instrumentation with screws and rods. ADMITTING DIAGNOSES: 1. C3-4 disc herniation with spinal cord compression, radiculopathy and myelopathy DISCHARGE DIAGNOSES: 1. C3-4 disc herniation with spinal cord compression, radiculopathy and myelopathy 2. S/p posterior laminectomy and discectomy of C3-4, and anterior C3-4 laminectomy and discectomy with intervertebral implant placement, lateral mass bilateral screw placement C3-4 and instrumental and bone effusion with graft. COMPLICATIONS: None. HISTORY OF PRESENT ILLNESS: Ms. Cummings is a pleasant 41-year-old right-handed female smoker who was seen in the emergency department by Dr. Kruger on 06/17/16 for neurosurgical consultation and was found to have a large C3-4 disc herniation with significant spinal cord compression. She reported neck pain for the past few months which have been gradually getting worse. The pain was constant and radiated down her left arm. She also noted a worsening weakness, numbness, and tingling in her left arm and hand. Within the past couple weeks she had also noted gait difficulty and would occasionally trip over her own feet. She denied bladder or bowel incontinence. We discussed all possible risks of surgery, as well as the risks of surgery providing no relief to his complaints. Patient understands the potential risks and benefits and wished to proceed with surgery for a possibility of improvement in symptoms. HOSPITAL COURSE: Patient was admitted to PCU following surgery. Her hospital course has been uneventful. She denies any postop symptoms and has remained afebrile. No new focal motor deficits have been noted on exam. DISCHARGE MEDICATIONS: Please see below. ALLERGIES: Please see below. PHYSICAL EXAMINATION ON DISCHARGE: VITAL SIGNS: Please see below. GENERAL: Sitting comfortably and participating in conversation well. Appears to be in no acute distress. EXTREMITIES: No peripheral edema, ecchymosis, or lesions. Moving all 4 extremities well. SKIN: No rashes, ecchymosis, erythema, or lesions. Edges of the incision are close together nicely and incision is dry. There is no active drainage or significant swelling noted. NEUROLOGICAL EXAMINATION: Alert and oriented 3. Rate and flow speech is ordinary. Speech is fluent. No new focal deficits noted on exam. LABORATORY DATA: Please see below. IMAGIN. CT C-spine, 07/06/16. Status post anterior posterior fusion with discectomy at C3-4 with hardware screws in both vertebral levels and in the pedicles posteriorly at this level on both sides of the joint. A drain is seen posterior to the joint on both sides. There is a single looped catheter and there are some subcutaneous air pockets in paraspinal posterior strap muscles adjacent to the surgical site, disc space and pre-vertebral space all appropriate for immediate postoperative state for about 48 hours. 2. X-ray C-spine, 07/04/16. Status post C3-4 laminectomy. Activity: See below in discharge instructions Diet: See below in discharge instructions DISCHARGE PLAN AND INSTRUCTIONS: The following discharge instructions have been discussed with the patient. 1. Keep incision dry for at least 24 hours. 2. Keep incision clean and inspect daily for signs of infection (redness, discharge, swelling, and increased warmth. 3. You may shower 48 hours after your surgery. Avoid bath tubs, hot tubs/ whirlpools, and swimming pools until cleared by surgeon or PA. 4. Do not apply lotions or creams near the incision site. 5. Start walking around the house as soon as possible. This helps to reduce swelling and lowers the chance of blood clots. 6. Continue to gradually increase her physical activity. 7. Climbing stairs at home is permitted as tolerated with caution. If available use handrails and taken time going up and down the stairs pain close attention to place each foot on each step carefully. 8. No bending, twisting, pulling, pushing, or lifting greater than 5 pounds until follow-up in the office. 9. No strenuous activity for at least 2 weeks. 10. Get plenty of rest. 11. Follow-up balance diet and drink plenty of water. 12. Decreased activity and pain medications may promote constipation, so you may want to add more raw fruit to your diet. A mild [id number] stool softener or laxative may be used if necessary. 13. Take pain medication as prescribed. Pain medication will not remove all the pain, but will lessen it significantly. 14. Do not drink alcohol when taking pain medications. 15. Do not drive or operate any machinery until your given specific instructions about driving when you follow-up in the office. 16. She is to call office to schedule follow-up appointment within 1-2 weeks or if any new signs or symptoms develop; [phone]. 17. She understands to call the office if any new questions arise. WHEN TO CALL: - Increased swelling or bruising. - If swelling and redness persist after a few days. - Increased redness along the incision. -If any unusual bleeding or drainage developed at the incision site. -If severe or increased pain not relieved by medication develops. - If any side effects to medications, such as rash, nausea, vomiting, or headache, arises. - If temperature of 100.5 or greater. - If any calf pain and/or swelling in any extremity develops. - Any new or increased difficulty breathing or shortness of breath. - Any loss of feeling or motion. - Increased intensity of headache or headache not responding tear medications. - Inability to urinate. - Extreme fatigue or lethargy. - Any worsening of any of your symptoms. All questions have been answered to patient's satisfaction. Patient understands and is aware of possible catastrophic sequela if he/she does not follow these recommendations. Patient agrees to follow-up in the office within 2 weeks or sooner if needed. DISCHARGE CONDITION: Stable. TIME SPENT ON DISCHARGE: Greater than 45 minutes. Katie Franz RPA-José Vital Signs/I&Os Vital Signs Date Time Temp Pulse Resp B/P (MAP) Pulse Ox O2 Delivery O2 Flow Rate FiO2 07/08/16 16:00 98 Room Air 07/08/16 12:00 99.0 68 18 109/60 (76) Discharge Medications Scheduled Ergocalciferol (Vitamin D) 50,000 Unit Cap, 50,000 UNIT PO QWEEK, (Reported) Scheduled PRN Acetaminophen/Hydrocodone (VICODIN 5-300 mg) 1 Tab Tab, 1 TAB PO for BACK PAIN, (Reported) Gabapentin (Gabapentin) 300 Mg Cap, 300 MG PO TID PRN for BACK PAIN, (Reported) Tramadol HCl (Tramadol HCl) 50 Mg Tab, 50 MG PO Q6HP PRN for pain, (Reported) Miscellaneous Medications Acetaminophen/Codeine (Tylenol/Codeine #3 300-30 mg) 1 Tab Tab, 1 TAB PO, ( Reported) Carisoprodol (Soma) 350 Mg Tab, 350 MG PO, (Reported) Allergies Coded Allergies: No Known Allergies (Verified Allergy, Unknown, 10/08/08) REJI FRANZ PA-C July 14, 2016 12:32
== END 2016-07-08 17:31 | disposition home or self-care (01) | DRG 473 ==
LOC: M OR 07:38 → M PCU 21:16
PROVIDERS: ADMIT Neurological Surgery; ATTEND Neurological Surgery
PROC: 0RB30ZZ Excision of Cervical Vertebral Disc, Open Approach (ICD-10-PCS; 2016-07-05)
PROC: 01N10ZZ Release Cervical Nerve, Open Approach (ICD-10-PCS; 2016-07-05)
PROC: 0RH104Z Insertion of Internal Fixation Device into Cervical Vertebral Joint, Open Approach (ICD-10-PCS; 2016-07-05)
PROC: 0RG20A0 Fusion of 2 or more Cervical Vertebral Joints with Interbody Fusion Device, Anterior Approach, Anterior Column, Open Approach (ICD-10-PCS; principal; 2016-07-05 07:30)
DX: M50.01 Cervical disc disorder with myelopathy, high cervical region (principal); F17.210 Nicotine dependence, cigarettes, uncomplicated; Z79.899 Other long term (current) drug therapy

== ENCOUNTER 2016-07-13 22:23 | Emergency (ER) | payer OTHER ==
[~2016-07-13] VITALS: Ht 170.2 cm; Wt 75.3 kg
[~2016-07-13 22:23] MED LIST changes: +NYST50SS SS
[2016-07-13 22:24] VITALS: BP 106/67
[2016-07-13] MEDS ORDERED: SOMA350T PO (22:45)
[2016-07-13] MEDS ORDERED: VICO5TAB16 PO (22:45)
[2016-07-13] MEDS ORDERED: GABA-282 PO (22:45)
[2016-07-13] MEDS ORDERED: TYLETAB14 PO (22:45)
== END 2016-07-14 01:10 | disposition left against medical advice (07) ==
LOC: M ED 07-14 00:28
DX: T81.89XA Other complications of procedures, not elsewhere classified, initial encounter (principal); Y92.9 Unspecified place or not applicable; Y93.9 Activity, unspecified; Z53.21 Procedure and treatment not carried out due to patient leaving prior to being seen by health care provider

== ENCOUNTER → 2016-07-14 | Outpatient (REF) | payer OTHER ==
[~2016-07-14] MED LIST changes: +SOMA350T PO; +TYLETAB14 PO; +VICO5TAB16 PO
== END ==
LOC: M SFHCPLAZ 12:05
PROVIDERS: ATTEND Surgery
DX: T81.31XA Disruption of external operation (surgical) wound, not elsewhere classified, initial encounter (principal)

== ENCOUNTER → 2016-08-08 | Outpatient (CLI) | payer OTHER ==
--- NOTE | 2016-08-09 01:35 | REP ---
Clinical: Status post fusion. Technique: AP, low lateral, bilateral oblique and open mouth views of the cervical spine. Findings: Posterior fusion at the C3/4 level is appreciated along with screws through the anterior vertebral bodies at C3 and C4. Reversal of normal lordosis centered at C4-5 is appreciated on current examination. Prevertebral soft tissues are within normal limits. Impression: Status post posterior fusion at C3-4. As above. Signed by Mike Caldwell MD 08/09/2016 01:27 A
== END ==
LOC: M RAD 11:37
PROVIDERS: ATTEND Physician Assistant
DX: M43.22 Fusion of spine, cervical region (principal)

== ENCOUNTER → 2016-08-08 | Outpatient (CLI) | payer OTHER ==
--- NOTE | 2016-08-08 12:37 | REPMRS ---
Patient History The patient states she has not had a clinical breast exam in over a year. No known family history of cancer. Took hormonal contraceptives for 3 years. Patient states she has lost 40lbs since her last mammogram due to a illness Digital Mammo Screening Bilat: August 08, 2016 - Exam #: [id number] Bilateral CC and MLO view(s) were taken. Technologist: Melida Chester, Technologist Prior study comparison: April 07, 2015, bilateral digital mammo screening bilat performed at [facility]. December 13, 2013, bilateral bilat screen digital mammo, performed at [facility] ([facility]). FINDINGS: There are scattered fibroglandular densities. There has been no change in the appearance of the mammogram from the prior studies. There is a mild amount of residual fibroglandular tissue which is fairly symmetric. There is no interval development of dominant mass, architectural distortion, or clustered microcalcification suggestive of malignancy. ASSESSMENT: BI-RADS/ACR category 1 mammogram. Negative. Recommendation Routine screening mammogram in 1 year (for women over age 40). This mammogram was interpreted with the aid of an FDA-approved computer-aided dectection system. Electronically Signed By: Rojelio Gonzalez MD 08/08/16 [id number]
== END ==
LOC: M RAD 11:40
PROVIDERS: ATTEND Nurse Practitioner Women's Health
DX: Z12.39 Encounter for other screening for malignant neoplasm of breast (principal)

== ENCOUNTER 2016-08-17 12:11 | Outpatient (RCR) | payer OTHER ==
[~2016-08-17 12:11] MED LIST changes: +VITA1CAP40 PO; -VITA50003 PO
== END 2016-08-19 | disposition home or self-care (01) ==
LOC: M PT 12:11
PROVIDERS: ATTEND Neurological Surgery
DX: Z51.89 Encounter for other specified aftercare (principal)

== ENCOUNTER 2016-08-31 12:08 | Outpatient (RCR) | payer OTHER | END 2016-09-19 | disposition home or self-care (01) | LOC: M PT 12:08 | PROVIDERS: ATTEND Neurological Surgery | DX: Z98.890 Other specified postprocedural states (principal); M43.22 Fusion of spine, cervical region ==

== ENCOUNTER → 2016-10-17 | Outpatient (CLI) | payer OTHER ==
[2016-10-17 13:02] LABS: FOLATE 9.2 NG/ML
[2016-10-21 08:07] LABS: VITAMIN E LEVEL 13.7 mg/L (5.3-16.8)
== END ==
LOC: M LAB 10:15
PROVIDERS: ATTEND Psychiatry & Neurology Neurology
DX: R41.3 Other amnesia (principal)

== ENCOUNTER → 2016-10-31 | Outpatient (CLI) | payer OTHER ==
[2016-10-31 14:01] LABS: BASO % 0.2 % (0.0-1.0); EOS # 0.2 K/mm3 (0.0-0.50); LYMPH # 1.8 K/mm3 (1.5-4.5); LYMPH % 20.8 % (24.0-44.0); MEAN CORPUSCULAR HEMOGLOBIN 31.4 pg (27.0-33.0); MEAN CORPUSCULAR HGB CONC 32.7 g/dl (32.0-36.5); MEAN CORPUSCULAR VOLUME 96.1 fl (80.0-96.0); MONO # 0.4 K/mm3 (0.0-0.8); MONO % 4.5 % (0.0-5.0); NEUTROPHILS # 5.6 K/mm3 (1.8-7.7); RED CELL DISTRIBUTION WIDTH 12.8 % (11.5-14.5); WHITE BLOOD COUNT 7.9 K/mm3 (4.0-10.0)
[2016-10-31 15:18] LABS: ALBUMIN 3.5 GM/DL (3.2-5.2); ALBUMIN/GLOBULIN RATIO 1.25 (1.00-1.93); ALKALINE PHOSPHATASE 66 U/L (45-117); ALT/SGPT 14 U/L (12-78); ANION GAP 5 MEQ/L (8-16); AST/SGOT 10 U/L (15-37); BILIRUBIN,TOTAL 0.6 MG/DL (0.2-1.0); BLOOD UREA NITROGEN 11 MG/DL (7-18); CALCIUM LEVEL 8.5 MG/DL (8.5-10.1); CARBON DIOXIDE LEVEL 27 MEQ/L (21-32); CHLORIDE LEVEL 107 MEQ/L (98-107); CHOLESTEROL LEVEL 243 MG/DL (<200); CREATININE FOR GFR 0.74 MG/DL (0.55-1.02); FREE T4 0.88 NG/DL (0.76-1.46); GLOMERULAR FILTRATION RATE > 60.0 (>58); GLUCOSE, FASTING 63 MG/DL (70-105); POTASSIUM SERUM 4.5 MEQ/L (3.5-5.1); SODIUM LEVEL 139 MEQ/L (136-145); TOTAL PROTEIN 6.3 GM/DL (6.4-8.2); TRIGLYCERIDES LEVEL 113 MG/DL (<150)
== END ==
LOC: M WUC 10:37
PROVIDERS: ATTEND Nurse Practitioner Adult Health
DX: Z79.899 Other long term (current) drug therapy (principal)

== ENCOUNTER → 2016-11-14 | Outpatient (CLI) | payer OTHER ==
--- NOTE | 2016-11-15 05:59 | REP ---
Clinical: Status post cervical fusion. Comparison: 08/08/2016. Findings: Postsurgical changes and surgical hardware remains stable. Findings include mild reversal of normal lordosis at the C4-5 level which remains unchanged. There is evidence for prior fusion at the C3-4 level. Prevertebral soft tissues appear normal. The remainder of the vertebral bodies are intact and relatively normal / age appropriate. Impression: Stable appearance to the cervical spine evidence for prior fusion at the C3-4 level as well as stable reversal of normal lordosis and C4-5 level. Signed by Mike Caldwell MD 11/15/2016 05:51 A
== END ==
LOC: M LAB 08:34 → M RAD 08:34
PROVIDERS: ATTEND Neurological Surgery
DX: M43.22 Fusion of spine, cervical region (principal)

== ENCOUNTER → 2017-01-30 | Outpatient (CLI) | payer OTHER ==
[2017-01-30 17:38] LABS: FOLATE 5.7 NG/ML
== END ==
LOC: M WUC 15:30
PROVIDERS: ATTEND Psychiatry & Neurology Neurology
DX: R41.3 Other amnesia (principal)

== ENCOUNTER → 2017-06-03 | Outpatient (CLI) | payer OTHER | LOC: M RAD 10:57 | DX: M47.12 Other spondylosis with myelopathy, cervical region (principal); Z98.890 Other specified postprocedural states | CPT/HCPCS: 72141 ==

== ENCOUNTER → 2017-06-27 | Outpatient (CLI) | payer OTHER | LOC: M PAIN 15:00 | DX: M47.812 Spondylosis without myelopathy or radiculopathy, cervical region (principal); M46.92 Unspecified inflammatory spondylopathy, cervical region; M79.1 Myalgia; M96.1 Postlaminectomy syndrome, not elsewhere classified; E78.00 Pure hypercholesterolemia, unspecified; F17.210 Nicotine dependence, cigarettes, uncomplicated; Z79.899 Other long term (current) drug therapy; Z98.84 Bariatric surgery status | CPT/HCPCS: G0463 ==

== ENCOUNTER 2017-08-01 02:20 | Emergency (ER) | payer OTHER ==
[2017-08-01] MEDS: NS 1,000 ML IV (04:02)
[2017-08-01] MEDS: ONDANSETRON 4MG/2ML VIAL (J2405) IV (04:02)
[2017-08-01] MEDS: MORPHINE 4 MG/ML 1ML VIAL/SYRINGE (J2270) IV (04:02)
== END 2017-08-01 06:12 | disposition home or self-care (01) ==
LOC: M ED 02:20
DX: S06.0X0A Concussion without loss of consciousness, initial encounter (principal); V43.52XA Car driver injured in collision with other type car in traffic accident, initial encounter; Y92.410 Unspecified street and highway as the place of occurrence of the external cause; Y93.9 Activity, unspecified; Y99.9 Unspecified external cause status; Z98.1 Arthrodesis status; M47.812 Spondylosis without myelopathy or radiculopathy, cervical region; M43.12 Spondylolisthesis, cervical region; M46.92 Unspecified inflammatory spondylopathy, cervical region; Z79.899 Other long term (current) drug therapy
CPT/HCPCS: J2270

== ENCOUNTER → 2017-08-31 | Outpatient (CLI) | payer OTHER ==
[2017-08-31 12:49] LABS: BASO % 0.3 % (0.0-1.0); EOS # 0.2 10^3/uL (0.0-0.50); EOS % 1.8 % (0.0-3.0); HEMATOCRIT 43.1 % (36.0-47.0); IMMATURE GRANULOCYTE % 0.3 % (0-3.0); LYMPH # 1.6 10^3/uL (1.5-4.5); LYMPH % 14.4 % (24.0-44.0); MEAN CORPUSCULAR HEMOGLOBIN 32.6 pg (27.0-33.0); MEAN CORPUSCULAR HGB CONC 34.8 g/dl (32.0-36.5); MEAN CORPUSCULAR VOLUME 93.7 fl (80.0-96.0); MONO # 0.6 10^3/uL (0.0-0.8); MONO % 5.2 % (0.0-5.0); NEUTROPHILS # 8.5 10^3/uL (1.8-7.7); PLATELET COUNT, AUTOMATED 248 10^3/uL (150-450); RED CELL DISTRIBUTION WIDTH 12.8 % (11.5-14.5); WHITE BLOOD COUNT 10.9 10^3/uL (4.0-10.0)
[2017-08-31 13:22] LABS: ANION GAP 7 MEQ/L (8-16); BLOOD UREA NITROGEN 12 MG/DL (7-18); CALCIUM LEVEL 8.8 MG/DL (8.5-10.1); CARBON DIOXIDE LEVEL 27 MEQ/L (21-32); CHLORIDE LEVEL 108 MEQ/L (98-107); CREATININE FOR GFR 0.79 MG/DL (0.55-1.30); GLOMERULAR FILTRATION RATE > 60.0 (>58); GLUCOSE, FASTING 88 MG/DL (70-100); POTASSIUM SERUM 4.2 MEQ/L (3.5-5.1); SODIUM LEVEL 142 MEQ/L (136-145)
== END ==
LOC: M LAB 11:47
DX: Z01.818 Encounter for other preprocedural examination (principal); I45.19 Other right bundle-branch block
CPT/HCPCS: 71046

== ENCOUNTER → 2017-10-31 | Outpatient (REF) | payer OTHER ==
[2017-10-31 18:19] LABS: APPEARANCE, URINE TURBID (CLEAR); BACTERIA, URINE AUTO 3+ (NEGATIVE); BILIRUBIN, URINE AUTO NEGATIVE (NEGATIVE); BLOOD, URINE BLOOD 2+ (NEGATIVE); COLOR, URINE AMBER (YELLOW); GLUCOSE, URINE (UA) AUTO NEGATIVE (NEGATIVE); KETONE, URINE AUTO NEGATIVE (NEGATIVE); LEUKOCYTE ESTERASE, URINE AUTO 3+ (NEGATIVE); MUCUS, URINE SMALL (NEGATIVE); NITRITE, URINE AUTO NEGATIVE (NEGATIVE); PROTEIN, URINE AUTO 1+ mg/dL (NEGATIVE); RBC, URINE AUTO 74 /HPF (0-3); SPECIFIC GRAVITY URINE AUTO 1.017 (1.002-1.035); SQUAMOUS EPITHELIAL CELL UR AU 1 /HPF (0-6); WBC, URINE AUTO TNTC /HPF (0-3)
== END ==
LOC: M LAB REF 16:47
DX: N39.0 Urinary tract infection, site not specified (principal)
CPT/HCPCS: 81001

== ENCOUNTER → 2017-12-05 | Outpatient (CLI) | payer OTHER ==
[2017-12-05 07:36] LABS: CHOLESTEROL LEVEL 236 MG/DL (<200); CHOLESTEROL RISK RATIO 4.214 (<5); FREE T4 0.94 NG/DL (0.76-1.46); HDL CHOLESTEROL 56 MG/DL (>40); LDL CHOLESTEROL 163 MG/DL (<100); NON-HDL-C 180 MG/DL; TRIGLYCERIDES LEVEL 87 MG/DL (<150)
== END ==
LOC: M LAB 06:09
DX: E04.1 Nontoxic single thyroid nodule (principal)
CPT/HCPCS: 84443

== ENCOUNTER → 2017-12-18 | Outpatient (CLI) | payer OTHER ==
[2017-12-20 11:23] LABS: HEPATITIS C VIRUS ABY INDEX < 0.0 INDEX (<0.8)
[2017-12-20 11:23] LABS: HEPATITIS B SURFACE ANTIGEN NEGATIVE (NEGATIVE); HIV 1&2 SCREEN CENTAUR NEGATIVE (NEGATIVE)
== END ==
LOC: M WUC 11:50
DX: Z11.3 Encounter for screening for infections with a predominantly sexual mode of transmission (principal)

== ENCOUNTER → 2018-01-30 | Outpatient (CLI) | payer OTHER | LOC: M RAD 10:42 | DX: Z12.31 Encounter for screening mammogram for malignant neoplasm of breast (principal) | CPT/HCPCS: 77067 ==

== ENCOUNTER → 2018-01-30 | Outpatient (CLI) | payer OTHER ==
[2018-01-30 11:53] LABS: BASO % 0.5 % (0.0-1.0); EOS # 0.5 10^3/uL (0.0-0.50); EOS % 6.2 % (0.0-3.0); HEMATOCRIT 46.2 % (36.0-47.0); HEMOGLOBIN 15.8 g/dl (12.0-15.5); IMMATURE GRANULOCYTE % 0.1 % (0-3.0); LYMPH # 2.7 10^3/uL (1.5-4.5); MEAN CORPUSCULAR HGB CONC 34.2 g/dl (32.0-36.5); MEAN CORPUSCULAR VOLUME 96.5 fl (80.0-96.0); MONO # 0.7 10^3/uL (0.0-0.8); MONO % 8.8 % (0.0-5.0); NEUTROPHILS # 3.7 10^3/uL (1.8-7.7); NEUTROPHILS % 48.4 % (36.0-66.0); PLATELET COUNT, AUTOMATED 233 10^3/uL (150-450); RED BLOOD COUNT 4.79 10^6/uL (4.00-5.40); RED CELL DISTRIBUTION WIDTH 12.7 % (11.5-14.5); WHITE BLOOD COUNT 7.6 10^3/uL (4.0-10.0)
[2018-01-30 12:29] LABS: ALBUMIN 3.6 GM/DL (3.2-5.2); ALBUMIN/GLOBULIN RATIO 1.13 (1.00-1.93); ALKALINE PHOSPHATASE 80 U/L (45-117); ALT/SGPT 16 U/L (12-78); ANION GAP 6 MEQ/L (8-16); AST/SGOT 10 U/L (7-37); BILIRUBIN,TOTAL 0.4 MG/DL (0.2-1.0); BLOOD UREA NITROGEN 14 MG/DL (7-18); CALCIUM LEVEL 8.4 MG/DL (8.5-10.1); CARBON DIOXIDE LEVEL 26 MEQ/L (21-32); CHLORIDE LEVEL 109 MEQ/L (98-107); CREATININE FOR GFR 0.84 MG/DL (0.55-1.30); GLOMERULAR FILTRATION RATE > 60.0 (>58); GLUCOSE, FASTING 73 MG/DL (70-100); POTASSIUM SERUM 4.3 MEQ/L (3.5-5.1); SODIUM LEVEL 141 MEQ/L (136-145); TOTAL PROTEIN 6.8 GM/DL (6.4-8.2)
== END ==
LOC: M LAB 10:46
DX: Z01.818 Encounter for other preprocedural examination (principal); Z98.2 Presence of cerebrospinal fluid drainage device
CPT/HCPCS: 71045

== ENCOUNTER → 2018-12-18 | Outpatient (CLI) | payer OTHER, MEDICAID ==
[~2018-12-18] MED LIST changes: +ACET-716 PO; -ACET30TAB PO; -GABA-282 PO; +GABA-843 PO; +HYDR-3715 PO; +IBUP80TA; +MACR100C42 PO; +METR-265; -NORCOTAB PO; -VICO5TAB16 PO; +VICO5TAB17 PO; -VITA1CAP40 PO; +VITA50005 PO
[2018-12-18 08:22] LABS: CHOLESTEROL RISK RATIO 5.203 (<5); FREE T4 0.93 NG/DL (0.76-1.46); THYROID STIMULATING HORMONE 1.93 uIU/ML (0.358-3.740)
--- NOTE | 2018-12-18 09:11 | REP ---
Clinical: Thyroid nodule. Technique: Real time pate scale and color evaluation using linear high frequency transducer. Comparison: 04/07/2015 Findings: Right thyroid lobe measures 5.4 x 2.0 x 1.5 cm and includes 8 x 6 x 5 mm solid mid pole nodule and 8 x 7 x 5 mm solid lower pole nodule. Isthmus measures 2.6 mm with and includes 6 x 4 x 3 mm complex cyst. Left lobe measures 4.9 x 1.4 x 1.2 cm and includes 4 x 4 x 2 mm medial mid pole simple cyst and 7 x 4 x 7 mm mid/lower pole simple cyst. Impression: Bilateral nodules/cysts wall appears slightly increased in size but morphologically unchanged when compared to prior examination Electronically Signed by Mike Caldwell MD 12/18/2018 09:03 A
== END ==
LOC: M RAD 06:58
PROVIDERS: ATTEND Family Medicine
DX: E04.1 Nontoxic single thyroid nodule (principal); E78.00 Pure hypercholesterolemia, unspecified

== ENCOUNTER → 2019-01-15 | Outpatient (CLI) | payer OTHER, MEDICAID ==
--- NOTE | 2019-01-15 08:09 | REP ---
Clinical: Lower back pain . Technique: AP, lateral, bilateral oblique, and coned-down views. Findings: Alignment and lordosis is maintained. The vertebral bodies including transverse process and spinous processes are intact and normal. There is no evidence for acute fracture / compression injury or subluxation. No evidence for spondylolysis or spondylolisthesis. Impression: Normal age-appropriate lumbosacral spine radiograph series. Electronically Signed by Mike Caldwell MD 01/15/2019 08:00 A
== END ==
LOC: M LAB 07:33 → M RAD 07:33
PROVIDERS: ATTEND Family Medicine
DX: M54.5 Low back pain (principal)

== ENCOUNTER → 2020-01-27 | Outpatient (CLI) | payer OTHER ==
[~2020-01-27] MED LIST changes: +PROHANCE 279.3MG/ML 15ML VIAL As Ordered ONE; +PROHANCE 279.3MG/ML 5ML VIAL As Ordered ONE
--- NOTE | 2020-01-28 10:37 | REP ---
INDICATION: S/P C-SPINE FUSION, CEREBRAL CYST. COMPARISON: Comparison cervical spine radiographs June 03, 2017.. TECHNIQUE: Four view limited C-spine series. FINDINGS: Patient is status post laminectomy and posterior element fusion C3 through C5 bilaterally. Ventral discectomy and fusion plating is seen in place across the C4-5 disc. Metallic screws are noted anteriorly at C3 and C4. Fusion plating is new since the prior study. There is inner vertebral disc spacer at C4-5. There is bridging osteophyte formation fusing the C5-6 disc space anteriorly. There is reversal of the normal cervical lordosis similar to the prior study. No bony destructive lesion is seen. IMPRESSION: Additional cervical fusion hardware in the interval since prior study and revision of posterior fusion hardware now extending down to C5. Laminectomies at C3 and C4. Bridging osteophyte formation at C5-6. <Electronically signed by Alexander Wright > 01/28/20 [id number]
== END ==
LOC: M RAD 17:19
PROVIDERS: ATTEND Neurological Surgery
DX: Z98.1 Arthrodesis status (principal)
CPT/HCPCS: 72040; A9576

== ENCOUNTER → 2020-01-27 | Outpatient (CLI) | payer OTHER ==
[~2020-01-27] MED LIST changes: -PROHANCE 279.3MG/ML 15ML VIAL As Ordered ONE; -PROHANCE 279.3MG/ML 5ML VIAL As Ordered ONE
--- NOTE | 2020-01-27 19:04 | REPVR ---
PROCEDURE INFORMATION: Exam: MR Head Without and With Contrast Exam date and time: 01/27/2020 6:40 PM Age: 44 years old Clinical indication: Condition or disease; Other: Cysts; Patient HX: HX small left choroid fissure cyst. HX neck surg. Gait disturbance, left arm numbness; Additional info: Cerebral cyst, athrodesis status having xrays first TECHNIQUE: Imaging protocol: MR of the head without and with intravenous contrast. Contrast material: PROHANCE; Contrast volume: 18 ml; Contrast route: INTRAVENOUS (IV); COMPARISON: CT Head without contrast 08/01/2017 3:43 AM FINDINGS: Ventricles demonstrate normal size and configuration. Major vascular flow voids at the skull base are preserved. No extra-axial fluid collection. No midline shift or intracranial mass effect. No pathologic white-matter signal or cerebral edema. No diffusion restriction. No pathologic intracranial enhancement. Visualized paranasal sinuses and mastoid air cells are clear. IMPRESSION: No acute intracranial abnormality. Electronically signed by: Bill Armijo On 01/27/2020 19:04:29 PM
== END ==
LOC: M RAD 17:07
PROVIDERS: ATTEND Nurse Practitioner Family
DX: G93.0 Cerebral cysts (principal)

== ENCOUNTER → 2020-06-05 | Outpatient (REF) | payer OTHER ==
[~2020-06-05] MED LIST changes: +GABA-282 PO; -GABA-843 PO
== END ==
LOC: M SFHCPLAZ 11:43
PROVIDERS: ATTEND Family Medicine
DX: Z53.9 Procedure and treatment not carried out, unspecified reason (principal)

== ENCOUNTER → 2020-06-08 | Outpatient (CLI) | payer OTHER ==
[2020-06-08 15:25] LABS: HEMATOCRIT 45.4 % (36.0-47.0); HEMOGLOBIN 15.2 g/dl (12.0-15.5); MEAN CORPUSCULAR HEMOGLOBIN 31.5 pg (27.0-33.0); MEAN CORPUSCULAR HGB CONC 33.5 g/dl (32.0-36.5); MEAN CORPUSCULAR VOLUME 94.2 fl (80.0-96.0); PLATELET COUNT, AUTOMATED 284 10^3/uL (150-450); RED BLOOD COUNT 4.82 10^6/uL (4.00-5.40); WHITE BLOOD COUNT 7.3 10^3/uL (4.0-10.0)
[2020-06-08 16:06] LABS: ALBUMIN 3.6 GM/DL (3.2-5.2); ALT/SGPT 16 U/L (12-78); BILIRUBIN,TOTAL 0.3 MG/DL (0.2-1.0); BLOOD UREA NITROGEN 12 MG/DL (7-18); CARBON DIOXIDE LEVEL 26 MEQ/L (21-32); CHLORIDE LEVEL 108 MEQ/L (98-107); CREATININE FOR GFR 0.71 MG/DL (0.55-1.30); FOLATE 5.6 NG/ML (>5.4); GLOMERULAR FILTRATION RATE > 60.0 (>58); GLUCOSE, FASTING 75 MG/DL (70-100); POTASSIUM SERUM 4.1 MEQ/L (3.5-5.1); SODIUM LEVEL 139 MEQ/L (136-145); TOTAL PROTEIN 6.9 GM/DL (6.4-8.2); VITAMIN B12 LEVEL 352 PG/ML (247-911)
== END ==
LOC: M LAB 13:53
PROVIDERS: ATTEND Student in an Organized Health Care Education/Training Program
DX: E04.1 Nontoxic single thyroid nodule (principal); Z98.84 Bariatric surgery status; Z13.1 Encounter for screening for diabetes mellitus; E27.8 Other specified disorders of adrenal gland

== ENCOUNTER → 2020-06-12 | Outpatient (CLI) | payer OTHER ==
--- NOTE | 2020-06-12 10:05 | REP ---
INDICATION: THYROID NODULE. COMPARISON: Multiple FINDINGS: The right lobe of the thyroid gland measures 5.7 x 2.1 x 1.1 cm and left lobe measures 4.8 x 1.2 x 1.3 cm. The isthmus measures 3.1 mm. Scattered cysts and solid nodules again seen in both lobes of the thyroid gland completely unchanged from the prior exam of 12/18/2018. IMPRESSION: There is no change in appearance of the thyroid gland when compared to 12/18/2018. <Electronically signed by David Rios > 06/12/20 [id number]
== END ==
LOC: M RAD 09:27
PROVIDERS: ATTEND Student in an Organized Health Care Education/Training Program
DX: E04.1 Nontoxic single thyroid nodule (principal)

== ENCOUNTER → 2020-06-24 | Outpatient (CLI) | payer OTHER ==
--- NOTE | 2020-06-24 09:50 | REP ---
INDICATION: ADRENAL HYPERPLASIA COMPARISON: None TECHNIQUE: Real time pate scale ultrasound examination using curved array transducer. FINDINGS: The bilateral kidneys are normal in contour, size, echogenicity, and reniform shape without hydronephrosis, nephrolithiasis, cystic or renal mass lesion. Right kidney measures 10.6 x 5.9 x 4.6 cm. Left kidney measures 13.0 x 5.8 x 6.3 cm. The adrenal glands are incompletely evaluated by ultrasound. The right adrenal gland appears to measure roughly 1.7 x 1.1 x 1.8 cm. The left adrenal gland appears to measure roughly 2.6 x 2.1 x 2.3 cm. This appears to be in keeping with most recent CT dated 04/27/2016 and consistent with the given history of adrenal hyperplasia. The bladder is unremarkable and without wall thickening or mass lesion. IMPRESSION: 1. Normal renal ultrasound. 2. The adrenal glands are incompletely evaluated by ultrasound but appear mildly prominent (left greater than right). This appears to be in keeping with most recent CT dated 04/27/2016 and consistent with the given history of adrenal hyperplasia. If necessary consider pre and postcontrast CT of the abdomen including delayed images for definitive evaluation. 3. Normal bladder. <Electronically signed by Mike Caldwell > 06/24/20 [id number]
== END ==
LOC: M RAD 08:50
PROVIDERS: ATTEND Student in an Organized Health Care Education/Training Program
DX: E27.8 Other specified disorders of adrenal gland (principal)

== ENCOUNTER → 2020-07-21 | Outpatient (CLI) | payer OTHER ==
[~2020-07-21] MED LIST changes: +PROHANCE 279.3MG/ML 15ML VIAL As Ordered ONE; +PROHANCE 279.3MG/ML 5ML VIAL As Ordered ONE
--- NOTE | 2020-07-21 14:03 | REPVR ---
PROCEDURE INFORMATION: Exam: MR Head Without and With Contrast Exam date and time: 07/21/2020 11:02 AM Age: 45 years old Clinical indication: Condition or disease; Other: Cerebral cysts TECHNIQUE: Imaging protocol: MR of the head without and with intravenous contrast. Contrast material: PROHANCE; Contrast volume: 18 ml; Contrast route: INTRAVENOUS (IV); COMPARISON: MRI-Brain W/O FOLL BY WITH 01/27/2020 6:17 PM FINDINGS: Brain: No acute infarct identified on the diffusion-weighted imaging. No evidence of brain parenchymal edema or intracranial mass effect. No significant white matter disease. No enhancing intracranial pathology. There is a stable, approximate 8 mm left choroidal fissural cyst. Cerebral ventricles: Stable. No ventriculomegaly. Bones/joints: Unremarkable. Paranasal sinuses: Tiny retention cyst or polyp in the left maxillary sinus. Trace scattered sinus mucosal thickening. No air-fluid levels. Mastoid air cells: Normal as visualized. No mastoid effusion. Orbital cavity: Unremarkable. Soft tissues: Unremarkable. IMPRESSION: No acute intracranial findings. Stable left choroidal fissure cyst. Electronically signed by: Rosa Elena Thompson On 07/21/2020 14:03:29 PM
== END ==
LOC: M RAD 09:33
PROVIDERS: ATTEND Neurological Surgery
DX: G93.0 Cerebral cysts (principal)
CPT/HCPCS: 70553; A9576

== ENCOUNTER → 2020-07-27 | Outpatient (CLI) | payer OTHER ==
[~2020-07-27] MED LIST changes: -PROHANCE 279.3MG/ML 15ML VIAL As Ordered ONE; -PROHANCE 279.3MG/ML 5ML VIAL As Ordered ONE
--- NOTE | 2020-07-27 11:14 | REP ---
INDICATION: S/P CERVICAL SPINAL FUSION. COMPARISON: 01/27/2020 TECHNIQUE: AP and lateral views of the cervical spine FINDINGS: Straightening of normal lordosis is again noted. Postsurgical changes involving C3 through C5 remain essentially stable as compared to prior examination. Associated degenerative changes including endplate irregularities and osteophytosis are again noted. Bridging and fusion at the C5-6 level is again suspected. No obvious new acute changes are identified. IMPRESSION: Postsurgical and degenerative changes. <Electronically signed by Mike Caldwell > 07/27/20 1111
== END ==
LOC: M WUC 10:39
PROVIDERS: ATTEND Neurological Surgery
DX: Z98.1 Arthrodesis status (principal)

== ENCOUNTER → 2021-01-12 | Outpatient (REF) | payer OTHER | LOC: M SFHCPLAZ 15:04 | PROVIDERS: ATTEND Family Medicine | DX: Z53.20 Procedure and treatment not carried out because of patient's decision for unspecified reasons (principal) ==

== ENCOUNTER → 2022-04-01 | Outpatient (REF) | payer MEDICAID, OTHER ==
[~2022-04-01] MED LIST changes: +NYST-38 SS; -NYST50SS SS
[2022-04-01 16:35] LABS: BASO % 0.3 % (0.0-1.0); EOS # 0.3 10^3/uL (0.0-0.5); EOS % 2.7 % (0.0-3.0); HEMATOCRIT 43.9 % (36.0-47.0); HEMOGLOBIN 14.8 g/dl (12.0-15.5); LYMPH # 3.1 10^3/uL (1.5-5.0); LYMPH % 32.4 % (24.0-44.0); MEAN CORPUSCULAR HEMOGLOBIN 31.3 pg (27.0-33.0); MEAN CORPUSCULAR HGB CONC 33.7 g/dl (32.0-36.5); MEAN CORPUSCULAR VOLUME 92.8 fl (80.0-96.0); MONO # 0.5 10^3/uL (0.0-0.8); MONO % 5.7 % (2.0-8.0); NEUTROPHILS # 5.5 10^3/uL (1.5-8.5); NEUTROPHILS % 58.6 % (36.0-66.0); PLATELET COUNT, AUTOMATED 291 10^3/uL (150-450); RED BLOOD COUNT 4.73 10^6/uL (4.00-5.40); WHITE BLOOD COUNT 9.4 10^3/uL (4.0-10.0)
[2022-04-01 17:00] LABS: THYROID STIMULATING HORMONE 1.434 uIU/ML (0.55-4.78); TOTAL 25(OH) VITAMIN D 11.1 NG/ML (20.0-100.0)
[2022-04-01 17:22] LABS: ALBUMIN 3.8 G/DL (3.2-5.2); ALKALINE PHOSPHATASE 106 U/L (46-116); ALT/SGPT 26 U/L (7.0-40); AST/SGOT < 8 U/L (<34); BILIRUBIN,TOTAL 0.2 MG/DL (0.3-1.2); BLOOD UREA NITROGEN 16 MG/DL (9-23); CALCIUM LEVEL 9.4 MG/DL (8.5-10.1); CARBON DIOXIDE LEVEL 28 MMOL/L (20-31); CHLORIDE LEVEL 106 MMOL/L (98-107); CHOLESTEROL LEVEL 295 MG/DL (<200); CHOLESTEROL RISK RATIO 5.21 (<5); CREATININE FOR GFR 0.82 MG/DL (0.55-1.30); GLOMERULAR FILTRATION RATE > 60.0 (>58); GLUCOSE, FASTING 76 MG/DL (60-100); HDL CHOLESTEROL 56.6 MG/DL (>40); LDL CHOLESTEROL 209.4 MG/DL (<100); NON-HDL-C 238 MG/DL; POTASSIUM SERUM 4.6 MMOL/L (3.5-5.1); SODIUM LEVEL 137 MMOL/L (136-145); TOTAL PROTEIN 6.9 G/DL (5.7-8.2); TRIGLYCERIDES LEVEL 145 MG/DL (<150)
[2022-04-01 17:41] LABS: HEMOGLOBIN A1c 4.8 % (4.0-6.0)
== END ==
LOC: M LAB REF 16:01
PROVIDERS: ATTEND Pediatrics
DX: E55.9 Vitamin D deficiency, unspecified (principal); E66.9 Obesity, unspecified; E04.1 Nontoxic single thyroid nodule

== ENCOUNTER → 2022-04-21 | Outpatient (CLI) | payer MEDICAID, OTHER | LOC: M WHC 12:20 | PROVIDERS: ATTEND Pediatrics | DX: Z12.31 Encounter for screening mammogram for malignant neoplasm of breast (principal); E04.1 Nontoxic single thyroid nodule ==

== ENCOUNTER 2022-06-29 08:35 | Day surgery (SDC) | payer OTHER ==
[~2022-06-29] VITALS: Ht 170.2 cm; Wt 97.0 kg
[~2022-06-29 08:35] MED LIST changes: +ATOR80TA59 PO; +NS 1,000 ML IV ONE; +VITA100093 PO
[2022-06-29] MEDS ORDERED: propofoL 200 MG/20 ML VIAL As Ordered ONE ×2 (10:07→10:23)
[2022-06-29 11:02] VITALS: BP 114/75
== END 2022-06-29 11:04 | disposition home or self-care (01) ==
LOC: M OPP 08:35
PROVIDERS: ATTEND Surgery
DX: D12.2 Benign neoplasm of ascending colon (principal); K57.30 Diverticulosis of large intestine without perforation or abscess without bleeding; F17.200 Nicotine dependence, unspecified, uncomplicated; Z98.84 Bariatric surgery status; Z79.02 Long term (current) use of antithrombotics/antiplatelets

== ENCOUNTER → 2022-08-18 | Outpatient (CLI) | payer OTHER ==
[~2022-08-18] MED LIST changes: -NS 1,000 ML IV ONE
== END ==
LOC: M PLARAD 14:22
PROVIDERS: ATTEND Neurological Surgery
DX: G93.0 Cerebral cysts (principal)

== ENCOUNTER → 2022-08-24 | Outpatient (REF) | payer OTHER, MEDICAID ==
[2022-08-24 18:23] LABS: ALBUMIN 3.8 G/DL (3.2-5.2); ALKALINE PHOSPHATASE 94 U/L (46-116); ALT/SGPT < 9 U/L (7.0-40); AST/SGOT < 8 U/L (<34); BILIRUBIN,TOTAL 0.4 MG/DL (0.3-1.2); BLOOD UREA NITROGEN 15 MG/DL (9-23); CALCIUM LEVEL 9.1 MG/DL (8.5-10.1); CARBON DIOXIDE LEVEL 27 MMOL/L (20-31); CHLORIDE LEVEL 111 MMOL/L (98-107); CHOLESTEROL LEVEL 177 MG/DL (<200); CHOLESTEROL RISK RATIO 3.43 (<5); CREATININE FOR GFR 0.74 MG/DL (0.55-1.30); GLOMERULAR FILTRATION RATE > 60.0 (>58); GLUCOSE, FASTING 83 MG/DL (60-100); HDL CHOLESTEROL 51.6 MG/DL (>40); LDL CHOLESTEROL 103.2 MG/DL (<100); NON-HDL-C 125.4 MG/DL; POTASSIUM SERUM 4.9 MMOL/L (3.5-5.1); SODIUM LEVEL 142 MMOL/L (136-145); TOTAL PROTEIN 6.5 G/DL (5.7-8.2); TRIGLYCERIDES LEVEL 111 MG/DL (<150)
== END ==
LOC: M LAB REF 17:21
PROVIDERS: ATTEND Pediatrics
DX: E78.5 Hyperlipidemia, unspecified (principal)

== ENCOUNTER → 2022-08-26 | Outpatient (CLI) | payer OTHER | LOC: M RAD 14:29 | PROVIDERS: ATTEND Neurological Surgery | DX: Z98.1 Arthrodesis status (principal) ==

== ENCOUNTER → 2022-10-25 | Outpatient (CLI) | payer OTHER | LOC: M PLAIMG 14:26 | PROVIDERS: ATTEND Neurological Surgery | DX: M54.12 Radiculopathy, cervical region (principal); M25.78 Osteophyte, vertebrae ==

== ENCOUNTER → 2023-01-17 | Outpatient (REF) | payer OTHER, MEDICAID ==
[2023-01-17 20:21] LABS: BASO % 0.3 % (0.0-1.0); EOS # 0.2 10^3/uL (0.0-0.5); EOS % 2.3 % (0.0-3.0); HEMATOCRIT 42.9 % (36.0-47.0); HEMOGLOBIN 14.5 g/dl (12.0-15.5); LYMPH # 3.4 10^3/uL (1.5-5.0); LYMPH % 32.2 % (24.0-44.0); MEAN CORPUSCULAR HEMOGLOBIN 32.4 pg (27.0-33.0); MEAN CORPUSCULAR HGB CONC 33.8 g/dl (32.0-36.5); MONO # 0.6 10^3/uL (0.0-0.8); MONO % 5.5 % (2.0-8.0); NEUTROPHILS # 6.2 10^3/uL (1.5-8.5); NEUTROPHILS % 59.4 % (36.0-66.0); PLATELET COUNT, AUTOMATED 285 10^3/uL (150-450); RED BLOOD COUNT 4.47 10^6/uL (4.00-5.40); WHITE BLOOD COUNT 10.4 10^3/uL (4.0-10.0)
[2023-01-17 20:37] LABS: ALBUMIN 3.7 G/DL (3.2-5.2); ALKALINE PHOSPHATASE 90 U/L (46-116); ALT/SGPT 23 U/L (7.0-40); AST/SGOT 18 U/L (<34); BILIRUBIN,TOTAL 0.2 MG/DL (0.3-1.2); BLOOD UREA NITROGEN 15 MG/DL (9-23); CALCIUM LEVEL 9.2 MG/DL (8.5-10.1); CARBON DIOXIDE LEVEL 27 MMOL/L (20-31); CHLORIDE LEVEL 104 MMOL/L (98-107); CHOLESTEROL LEVEL 162 MG/DL (<200); CHOLESTEROL RISK RATIO 2.97 (<5); CREATININE FOR GFR 0.86 MG/DL (0.55-1.30); GLOMERULAR FILTRATION RATE > 60.0 (>58); GLUCOSE, FASTING 67 MG/DL (60-100); HDL CHOLESTEROL 54.4 MG/DL (>40); IRON (FE) 69 UG/DL (50-170); LDL CHOLESTEROL 81.8 MG/DL (<100); NON-HDL-C 107.6 MG/DL; PERCENT SATURATION 22.8 % (13.2-45.0); SODIUM LEVEL 140 MMOL/L (136-145); TOTAL IRON BINDING CAPACITY 302 UG/DL (250-425); TOTAL PROTEIN 6.5 G/DL (5.7-8.2); TRIGLYCERIDES LEVEL 129 MG/DL (<150)
[2023-01-17 20:41] LABS: THYROID STIMULATING HORMONE 2.109 uIU/ML (0.55-4.78)
[2023-01-17 20:42] LABS: VITAMIN B12 LEVEL 315 PG/ML (211-911)
[2023-01-17 20:44] LABS: FOLATE 21.3 NG/ML (>5.4)
== END ==
LOC: M LAB REF 16:40
PROVIDERS: ATTEND Pediatrics
DX: Z98.84 Bariatric surgery status (principal); E78.5 Hyperlipidemia, unspecified

== ENCOUNTER → 2023-03-30 | Outpatient (CLI) | payer OTHER | LOC: M RAD 14:16 | PROVIDERS: ATTEND Pediatrics | DX: R10.2 Pelvic and perineal pain (principal) ==

== ENCOUNTER → 2023-05-17 | Outpatient (CLI) | payer OTHER | LOC: M WHC 14:50 | PROVIDERS: ATTEND Pediatrics | DX: Z12.31 Encounter for screening mammogram for malignant neoplasm of breast (principal) ==

== ENCOUNTER → 2023-06-07 | Outpatient (REF) | payer OTHER ==
[2023-06-07 18:23] LABS: BLOOD UREA NITROGEN 11 MG/DL (9-23); CALCIUM LEVEL 9.4 MG/DL (8.5-10.1); CARBON DIOXIDE LEVEL 28 MMOL/L (20-31); CHLORIDE LEVEL 105 MMOL/L (98-107); CREATININE FOR GFR 0.73 MG/DL (0.55-1.30); GLOMERULAR FILTRATION RATE > 60.0 (>51); GLUCOSE, FASTING 71 MG/DL (60-100); POTASSIUM SERUM 4.8 MMOL/L (3.5-5.1); SODIUM LEVEL 138 MMOL/L (136-145)
== END ==
LOC: M LAB REF 16:27
PROVIDERS: ATTEND Pediatrics
DX: Z12.2 Encounter for screening for malignant neoplasm of respiratory organs (principal)

== ENCOUNTER → 2023-06-28 | Outpatient (CLI) | payer OTHER ==
[2023-06-28 13:41] LABS: BASO % 0.3 % (0.0-1.0); EOS # 0.2 10^3/uL (0.0-0.5); EOS % 2.1 % (0.0-3.0); HEMATOCRIT 46.3 % (36.0-47.0); HEMOGLOBIN 15.9 g/dl (12.0-15.5); LYMPH # 2.8 10^3/uL (1.5-5.0); LYMPH % 29.8 % (24.0-44.0); MEAN CORPUSCULAR HEMOGLOBIN 32.3 pg (27.0-33.0); MEAN CORPUSCULAR HGB CONC 34.3 g/dl (32.0-36.5); MEAN CORPUSCULAR VOLUME 94.1 fl (80.0-96.0); MONO # 0.5 10^3/uL (0.0-0.8); MONO % 5.3 % (2.0-8.0); NEUTROPHILS # 5.7 10^3/uL (1.5-8.5); NEUTROPHILS % 62.2 % (36.0-66.0); PLATELET COUNT, AUTOMATED 256 10^3/uL (150-450); RED BLOOD COUNT 4.92 10^6/uL (4.00-5.40); WHITE BLOOD COUNT 9.2 10^3/uL (4.0-10.0)
[2023-06-28 13:48] LABS: ALBUMIN 3.4 G/DL (3.2-5.2); ALKALINE PHOSPHATASE 101 U/L (46-116); ALT/SGPT 20 U/L (7.0-40); AST/SGOT 15 U/L (<34); BILIRUBIN,DIRECT < 0.1 MG/DL (<0.4); BILIRUBIN,TOTAL 0.3 MG/DL (0.3-1.2); TOTAL PROTEIN 6.7 G/DL (5.7-8.2)
== END ==
LOC: M LAB 12:18
PROVIDERS: ATTEND Surgery
DX: R19.7 Diarrhea, unspecified (principal)

== ENCOUNTER → 2023-07-12 | Outpatient (CLI) | payer OTHER ==
[~2023-07-12] MED LIST changes: +GASTROGRAFIN SOLUTION 30ML As Ordered ONE; +ISOVUE-370 76% 100ML VIAL As Ordered ONE
== END ==
LOC: M RAD 07:27
PROVIDERS: ATTEND Pediatrics
DX: K57.90 Diverticulosis of intestine, part unspecified, without perforation or abscess without bleeding (principal); R10.2 Pelvic and perineal pain
CPT/HCPCS: 74177; Q9963; Q9967

== ENCOUNTER → 2023-09-04 | Outpatient (CLI) | payer OTHER ==
[~2023-09-04] MED LIST changes: +EZET10TA21 PO; -GASTROGRAFIN SOLUTION 30ML As Ordered ONE; -ISOVUE-370 76% 100ML VIAL As Ordered ONE; +TRAM50TA2
== END ==
LOC: M RAD 16:33
PROVIDERS: ATTEND Pediatrics
DX: Z12.2 Encounter for screening for malignant neoplasm of respiratory organs (principal); F17.210 Nicotine dependence, cigarettes, uncomplicated

== ENCOUNTER 2023-09-13 07:04 | Day surgery (SDC) | payer OTHER ==
[~2023-09-13] VITALS: Ht 172.7 cm; Wt 95.9 kg
[2023-09-13] MEDS: NS 1,000 ML IV SCH (07:36)
[2023-09-13] MEDS ORDERED: LIDOCAINE 2% 100MG/5ML SDV (FOR ANES.) As Ordered ONE (07:53)
[2023-09-13] MEDS ORDERED: propofoL 200 MG/20 ML VIAL As Ordered ONE (07:53)
[2023-09-13 09:24] VITALS: TEMP 96.8
[2023-09-13 09:40] VITALS: BP 129/69; O2SAT 99
== END 2023-09-13 09:52 | disposition home or self-care (01) ==
LOC: M OPP 07:04
PROVIDERS: ATTEND Surgery
DX: Z86.010 Personal history of colon polyps (principal); K63.5 Polyp of colon; K52.9 Noninfective gastroenteritis and colitis, unspecified; K57.30 Diverticulosis of large intestine without perforation or abscess without bleeding; K21.00 Gastro-esophageal reflux disease with esophagitis, without bleeding; K25.9 Gastric ulcer, unspecified as acute or chronic, without hemorrhage or perforation; R12 Heartburn; F17.200 Nicotine dependence, unspecified, uncomplicated; Z79.02 Long term (current) use of antithrombotics/antiplatelets; Z79.1 Long term (current) use of non-steroidal anti-inflammatories (NSAID); Z79.891 Long term (current) use of opiate analgesic; Z79.899 Other long term (current) drug therapy

== ENCOUNTER → 2023-09-15 | Outpatient (REF) | payer OTHER, MEDICAID ==
[2023-09-15 18:49] LABS: CHOLESTEROL RISK RATIO 4.5 (<5); HDL CHOLESTEROL 46.6 MG/DL (>40); LDL CHOLESTEROL 139.2 MG/DL (<100); NON-HDL-C 163.4 MG/DL; PERCENT SATURATION 21.3 % (13.2-45.0)
[2023-09-15 18:51] LABS: FERRITIN 70.3 NG/ML (7.3-270.7); THYROID STIMULATING HORMONE 1.258 uIU/ML (0.55-4.78)
[2023-09-15 18:52] LABS: FOLATE 12.2 NG/ML (>5.4); TOTAL 25(OH) VITAMIN D 37.4 NG/ML (20.0-100.0)
== END ==
LOC: M LAB REF 16:36
PROVIDERS: ATTEND Pediatrics
DX: K91.2 Postsurgical malabsorption, not elsewhere classified (principal); E78.5 Hyperlipidemia, unspecified

== ENCOUNTER → 2023-09-30 | Outpatient (CLI) | payer OTHER ==
[2023-09-30 09:37] LABS: BASO % 0.3 % (0.0-1.0); EOS # 0.3 10^3/uL (0.0-0.5); EOS % 4.1 % (0.0-3.0); HEMATOCRIT 43.5 % (36.0-47.0); HEMOGLOBIN 14.8 g/dl (12.0-15.5); LYMPH # 2.4 10^3/uL (1.5-5.0); LYMPH % 38.5 % (24.0-44.0); MEAN CORPUSCULAR HEMOGLOBIN 31.4 pg (27.0-33.0); MEAN CORPUSCULAR VOLUME 92.2 fl (80.0-96.0); MONO # 0.5 10^3/uL (0.0-0.8); MONO % 7.1 % (2.0-8.0); NEUTROPHILS # 3.1 10^3/uL (1.5-8.5); NEUTROPHILS % 49.8 % (36.0-66.0); PLATELET COUNT, AUTOMATED 252 10^3/uL (150-450); RED BLOOD COUNT 4.72 10^6/uL (4.00-5.40); WHITE BLOOD COUNT 6.3 10^3/uL (4.0-10.0)
[2023-09-30 10:12] LABS: BLOOD UREA NITROGEN 11 MG/DL (9-23); CALCIUM LEVEL 8.7 MG/DL (8.5-10.1); CARBON DIOXIDE LEVEL 27 MMOL/L (20-31); CHLORIDE LEVEL 111 MMOL/L (98-107); GLOMERULAR FILTRATION RATE > 60.0 (>51); GLUCOSE, FASTING 79 MG/DL (60-100); SODIUM LEVEL 140 MMOL/L (136-145)
== END ==
LOC: M EKG 08:31
PROVIDERS: ATTEND Podiatrist
DX: Z01.818 Encounter for other preprocedural examination (principal); M72.2 Plantar fascial fibromatosis; M79.671 Pain in right foot

== ENCOUNTER 2023-10-06 12:39 | Day surgery (SDC) | payer OTHER ==
[~2023-10-06] VITALS: Ht 170.2 cm; Wt 97.5 kg
[2023-10-06] MEDS ORDERED: LR 1,000 ML IV SCH ×2 (13:30→15:45)
[2023-10-06] MEDS ORDERED: propofoL 200 MG/20 ML VIAL As Ordered ONE (13:59)
[2023-10-06] MEDS ORDERED: LIDOCAINE 2% 100MG/5ML SDV (FOR ANES.) As Ordered ONE (13:59)
[2023-10-06] MEDS ORDERED: MIDAZOLAM INJ 2MG/2ML VIAL As Ordered ONE (14:14)
[2023-10-06] MEDS ORDERED: ACETAMINOPHEN 1000MG 100ML IV BAG As Ordered ONE (14:14)
[2023-10-06] MEDS ORDERED: fentaNYL 100 MCG/2 ML INJECTION As Ordered ONE (14:47)
[2023-10-06] MEDS: ceFAZolin SOD 2 GM in IV 1 EA IV ONE (15:05)
[2023-10-06] MEDS: LIDOCAINE 2% MDV 20ML VIAL As Ordered ONE (15:20)
[2023-10-06] MEDS: GENTAMICIN SULF 80MG/2ML VIAL As Ordered ONE (15:20)
[2023-10-06] MEDS ORDERED: DESFLURANE 240 ML INHALANT As Ordered ONE (15:30)
[2023-10-06] MEDS ORDERED: ONDANSETRON 4MG 2ML VIAL IV PRN (15:45)
[2023-10-06] MEDS ORDERED: fentaNYL 100 MCG/2 ML INJECTION IV PRN (15:45)
[2023-10-06 16:46] VITALS: BP 110/66; TEMP 97; O2SAT 96
== END 2023-10-06 16:56 | disposition home or self-care (01) ==
LOC: M SDC 12:39
PROVIDERS: ATTEND Podiatrist
DX: M72.2 Plantar fascial fibromatosis (principal); G62.9 Polyneuropathy, unspecified; E78.00 Pure hypercholesterolemia, unspecified; R32 Unspecified urinary incontinence; Z79.899 Other long term (current) drug therapy; Z90.710 Acquired absence of both cervix and uterus; F17.210 Nicotine dependence, cigarettes, uncomplicated; Z98.84 Bariatric surgery status
CPT/HCPCS: 29893; J0131; J0665; J0690; J1100; J1580; J2250; J3010

== ENCOUNTER → 2023-12-24 | Outpatient (CLI) | payer OTHER ==
[~2023-12-24] MED LIST changes: +GABA-1172 PO; -GABA-282 PO
[2023-12-24 11:45] LABS: BASO % 0.4 % (0.0-1.0); EOS # 0.2 10^3/uL (0.0-0.5); EOS % 3.3 % (0.0-3.0); HEMATOCRIT 42.6 % (36.0-47.0); HEMOGLOBIN 14.5 g/dl (12.0-15.5); LYMPH # 2.6 10^3/uL (1.5-5.0); LYMPH % 36.2 % (24.0-44.0); MEAN CORPUSCULAR HEMOGLOBIN 32.1 pg (27.0-33.0); MEAN CORPUSCULAR VOLUME 94.2 fl (80.0-96.0); MONO # 0.5 10^3/uL (0.0-0.8); MONO % 6.8 % (2.0-8.0); NEUTROPHILS # 3.8 10^3/uL (1.5-8.5); NEUTROPHILS % 52.9 % (36.0-66.0); PLATELET COUNT, AUTOMATED 273 10^3/uL (150-450); RED BLOOD COUNT 4.52 10^6/uL (4.00-5.40); WHITE BLOOD COUNT 7.2 10^3/uL (4.0-10.0)
[2023-12-24 12:15] LABS: BLOOD UREA NITROGEN 13 MG/DL (9-23); CALCIUM LEVEL 9.5 MG/DL (8.5-10.1); CARBON DIOXIDE LEVEL 28 MMOL/L (20-31); CHLORIDE LEVEL 110 MMOL/L (98-107); GLOMERULAR FILTRATION RATE > 60.0 (>51); GLUCOSE, FASTING 85 MG/DL (60-100); POTASSIUM SERUM 4.5 MMOL/L (3.5-5.1); SODIUM LEVEL 141 MMOL/L (136-145)
== END ==
LOC: M LAB 11:22
PROVIDERS: ATTEND Podiatrist
DX: M72.2 Plantar fascial fibromatosis (principal); M79.672 Pain in left foot

== ENCOUNTER 2023-12-29 07:33 | Day surgery (SDC) | payer OTHER ==
[~2023-12-29] VITALS: Ht 170.2 cm; Wt 99.2 kg
[2023-12-29] MEDS ORDERED: propofoL 500 MG/50 ML VIAL As Ordered ONE (08:10)
[2023-12-29] MEDS ORDERED: LIDOCAINE 2% 100MG/5ML SDV (FOR ANES.) As Ordered ONE (08:11)
[2023-12-29] MEDS ORDERED: MIDAZOLAM INJ 2MG/2ML VIAL As Ordered ONE (08:11)
[2023-12-29] MEDS: ceFAZolin SOD 2 GM in IV 1 EA IV ONE (09:43)
[2023-12-29] MEDS: LIDOCAINE 2% MDV 20ML VIAL As Ordered ONE (10:00)
[2023-12-29] MEDS: GENTAMICIN SULF 80MG/2ML VIAL As Ordered ONE (10:06)
[2023-12-29 11:28] VITALS: BP 129/72; TEMP 97.3; O2SAT 99
== END 2023-12-29 11:31 | disposition home or self-care (01) ==
LOC: M SDC 07:33
PROVIDERS: ATTEND Podiatrist
DX: M72.2 Plantar fascial fibromatosis (principal); E78.5 Hyperlipidemia, unspecified; F17.218 Nicotine dependence, cigarettes, with other nicotine-induced disorders; Z98.84 Bariatric surgery status; Z79.899 Other long term (current) drug therapy
CPT/HCPCS: 29893; J0665; J0690; J1100; J1580; J2250

== ENCOUNTER → 2024-05-01 | Outpatient (CLI) | payer OTHER | LOC: M RAD 07:13 | PROVIDERS: ATTEND Neurological Surgery | DX: M47.812 Spondylosis without myelopathy or radiculopathy, cervical region (principal) ==

== ENCOUNTER → 2024-06-17 | Outpatient (REF) | payer OTHER, MEDICAID ==
[2024-06-17 18:26] LABS: CHOLESTEROL RISK RATIO 4.88 (<5); HDL CHOLESTEROL 43.8 MG/DL (>40); NON-HDL-C 170.2 MG/DL
[2024-06-17 18:29] LABS: THYROID STIMULATING HORMONE 1.834 uIU/ML (0.55-4.78)
== END ==
LOC: M LAB REF 17:26
PROVIDERS: ATTEND Pediatrics
DX: E78.5 Hyperlipidemia, unspecified (principal)

== ENCOUNTER 2024-09-10 14:45 | Emergency (ER) | payer OTHER ==
[~2024-09-10] VITALS: Ht 170.2 cm; Wt 91.8 kg
[2024-09-10 16:38] LABS: PLATELET COUNT, AUTOMATED 238 10^3/uL (150-450)
[2024-09-10 16:43] LABS: APPEARANCE, URINE CLEAR (CLEAR); BACTERIA, URINE AUTO NEGATIVE (NEGATIVE); BILIRUBIN, URINE AUTO NEGATIVE (NEGATIVE); BLOOD, URINE BLOOD NEGATIVE (NEGATIVE); GLUCOSE, URINE (UA) AUTO NEGATIVE (NEGATIVE); KETONE, URINE AUTO NEGATIVE (NEGATIVE); LEUKOCYTE ESTERASE, URINE AUTO NEGATIVE (NEGATIVE); NITRITE, URINE AUTO NEGATIVE (NEGATIVE); PROTEIN, URINE AUTO NEGATIVE (NEGATIVE); RBC, URINE AUTO 0 /HPF (0-3); SPECIFIC GRAVITY URINE AUTO 1.003 (1.002-1.035); SQUAMOUS EPITHELIAL CELL UR AU 0 /HPF (0-6); UROBILINOGEN, URINE AUTO 0.2 mg/dL (0.0-2.0); WBC, URINE AUTO 0 /HPF (0-3)
[2024-09-10] MEDS ORDERED: ISOVUE-370 76% 100 ML VIAL As Ordered ONE (16:46)
[2024-09-10] MEDS: ACETAMINOPHEN *IV* 1,000 MG in IV 1 EA IV ONE (16:57)
[2024-09-10] MEDS: NS (Normal Saline) 0.9% 1,000 ML IV ONE (16:57)
[2024-09-10 17:06] LABS: ALT/SGPT 17 U/L (7.0-40); AST/SGOT 26 U/L (<34)
[2024-09-10] MEDS ORDERED: METH-1165 PO (19:23)
[2024-09-10] MEDS: KETOROLAC 30 MG/ML 1 ML VIAL IV ONE (19:35)
[2024-09-10 19:36] VITALS: BP 108/56; TEMP 96; O2SAT 97
== END 2024-09-10 19:43 | disposition home or self-care (01) ==
LOC: EDBD 14:45 → M ED 14:45
DX: S13.4XXA Sprain of ligaments of cervical spine, initial encounter (principal); Y92.9 Unspecified place or not applicable; Y93.9 Activity, unspecified; Y99.9 Unspecified external cause status; V49.40XA Driver injured in collision with unspecified motor vehicles in traffic accident, initial encounter; F17.210 Nicotine dependence, cigarettes, uncomplicated; Z79.899 Other long term (current) drug therapy
CPT/HCPCS: 70450; 71260; 72125; 72128; 72131; 74177; 80047; 80076; 81001; 83605; 83690; 85027; 96365; 96366; 96375; 99284; J0131; J1885; Q9967

== ENCOUNTER 2024-09-13 17:53 | Emergency (ER) | payer OTHER ==
[~2024-09-13] VITALS: Ht 170.2 cm; Wt 91.8 kg
[~2024-09-13 17:53] MED LIST changes: +METH-1165 PO
[2024-09-13 17:56] VITALS: BP 121/69; TEMP 97.9; O2SAT 97
[2024-09-13] MEDS: KETOROLAC 30 MG/ML 1 ML VIAL IM ONE (20:13)
== END 2024-09-13 20:24 | disposition home or self-care (01) ==
LOC: M ED 17:53
DX: S06.0X0S Concussion without loss of consciousness, sequela (principal); V49.40XA Driver injured in collision with unspecified motor vehicles in traffic accident, initial encounter; M54.2 Cervicalgia; Z79.02 Long term (current) use of antithrombotics/antiplatelets; Z79.899 Other long term (current) drug therapy; Y99.9 Unspecified external cause status; Y93.89 Activity, other specified; Y92.410 Unspecified street and highway as the place of occurrence of the external cause
CPT/HCPCS: 96372; 99283; J1885

== ENCOUNTER → 2024-10-16 | Outpatient (CLI) | payer OTHER ==
[2024-10-16 14:42] LABS: CHOLESTEROL LEVEL 204.0 MG/DL (<200); CHOLESTEROL RISK RATIO 4.52 (<5); IRON (FE) 104.0 UG/DL (50-170); LDL CHOLESTEROL 136.7 MG/DL (<100); NON-HDL-C 158.9 MG/DL; PERCENT SATURATION 36.2 % (13.2-45.0); TRIGLYCERIDES LEVEL 111.0 MG/DL (<150)
[2024-10-16 14:49] LABS: VITAMIN B12 LEVEL 325.0 PG/ML (211-911)
== END ==
LOC: M WUC 12:32
PROVIDERS: ATTEND Pediatrics
DX: E78.5 Hyperlipidemia, unspecified (principal)

== ENCOUNTER → 2025-01-29 | Outpatient (CLI) | payer OTHER ==
[~2025-01-29] MED LIST changes: -EZET10TA21 PO; +EZET10TA57 PO
[2025-01-29 13:00] LABS: ALT/SGPT 20 U/L (7.0-40); AST/SGOT 17 U/L (<34); CALCIUM LEVEL 9.0 MG/DL (8.5-10.1); CARBON DIOXIDE LEVEL 28 MMOL/L (20-31); CHLORIDE LEVEL 106 MMOL/L (98-107); CHOLESTEROL LEVEL 161 MG/DL (<200); CHOLESTEROL RISK RATIO 3.70 (<5); CREATININE FOR GFR 0.77 MG/DL (0.55-1.30); GLOMERULAR FILTRATION RATE > 90.0 (>51); LDL CHOLESTEROL 95.7 MG/DL (<100); NON-HDL-C 117.5 MG/DL; POTASSIUM SERUM 4.0 MMOL/L (3.5-5.1); SODIUM LEVEL 140 MMOL/L (136-145); TRIGLYCERIDES LEVEL 109 MG/DL (<150)
[2025-01-29 14:05] LABS: ESTIMATED AVERAGE GLUCOSE 94.0 MG/DL (60-110)
== END ==
LOC: M WUC 10:16
PROVIDERS: ATTEND Pediatrics
DX: E78.019 Familial hypercholesterolemia, unspecified (principal); E66.9 Obesity, unspecified

== ENCOUNTER → 2025-02-05 | Outpatient (CLI) | payer OTHER | LOC: M EKG 12:00 | PROVIDERS: ATTEND Pediatrics | DX: R00.2 Palpitations (principal) ==